=== PATIENT | female | born 2005 | race Two or more races ===

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

== ENCOUNTER 2023-12-08 23:17 | Emergency (ER) | payer OTHER, SELFPAY ==
[2023-12-08 23:29] VITALS: BP 110/67; PULSE 63; RESP 16; TEMP 36.3; O2SAT 97; BMI 18.8
[2023-12-08 23:51] VITALS: BP 105/66; PULSE 67; RESP 16; TEMP 36.8; O2SAT 97
[2023-12-09 00:01] LABS: Appearance Urine Cloudy; Color Urine Yellow; Glucose Urine UA Negative (Negative); Leukocyte Esterase Urine Moderate (2+) (Negative); Nitrite Urine Negative (Negative); PH 6.5 (5.0-9.0); UMIC TRIGGER UACC YES; Urine Blood Negative (Negative); Urine Ketones Negative (Negative); Urine Protein Trace mg/dL (Neg-Trace)
[2023-12-09 00:06] LABS: Bacteria Urine Trace (None Seen); Hyaline Casts Urine 0-2 /LPF (0-2); RBC Urine 0-2 /HPF (0-2); Squamous Epithelial Cell Urine 0-2 /HPF (0-2); UACC Culture Trigger YES; WBC Urine >50 /HPF (0-5)
[2023-12-09] MEDS: Phenazopyridine HCL 100 MG TABLET PO (00:29)
--- NOTE | 2023-12-09 00:29 | ED.FEMALEGU ---
HPI - Female Genitourinary General Chief complaint: Urogenital-Female Stated complaint: UTI Time Seen by Provider: 12/08/23 23:49 Source: patient Mode of arrival: ambulatory Limitations: no limitations History of Present Illness HPI Narrative: Patient's history of frequent UTI complaining of urgency and frequency for last 2 days tried azo [id number] without much relief no fever no nausea no vomiting no flank no vaginal discharge Related Data Previous Rx's Medication Instructions Recorded cefuroxime axetil 250 mg tablet 250 mg PO BID 7 days #14 tabs 12/09/23 phenazopyridine 100 mg tablet 100 mg PO TID #5 tabs 12/09/23 (Pyridium) Allergies Allergy/AdvReac Type Severity Reaction Status Date / Time No Known Allergies Allergy Verified 12/08/23 23:29 Review of Systems Review of Systems: Yes all other systems are reviewed and are negative [facility] Social History Social History Advance Directives: No Advance Directives Information Provided: No Physical Exam Vital Signs: Vital Signs: Last Vital Signs Temp 98.2 F 12/08/23 23:51 Pulse 67 12/08/23 23:51 Resp 16 12/08/23 23:51 BP 105/66 12/08/23 23:51 Pulse Ox 97 12/08/23 23:51 O2 Del Method Room Air 12/08/23 23:51 BMI result Body Mass Index 18.8 Appearance: Alert. Oriented X3. No acute distress. ENT: Pharynx normal. Oral Mucosa moist Neck: Normal inspection. Neck supple. CVS: Normal heart rate and rhythm. Pulses normal. Respiratory: No respiratory distress. Equal air entry bilateral, Abdomen: Soft and nontender. Bowel sounds are present, no mass palpable, no CVA tenderness Medical Decision Making Differential Diagnosis Patient with uncomplicated UTI discharge patient home on Ceftin Lab Data MDM Lab Attestation statement: I reviewed the patient's lab results. Labs: Lab Results 12/08/23 Range/Units 23:55 Urine Color Yellow Urine Appearance Cloudy Urine pH 6.5 (5.0-9.0) Ur Specific [place] 1.020 (1.005-1.025) Urine Protein Trace (Neg-Trace) mg/dL Urine Glucose (UA) Negative (Negative) mg/dL Urine Ketones Negative (Negative) mg/dL Urine Blood Negative (Negative) Urine Nitrite Negative (Negative) Ur Leukocyte Esterase Moderate (2+) H (Negative) Urine RBC 0-2 (0-2) /HPF Urine WBC >50 H (0-5) /HPF Ur Squamous Epith Cells 0-2 (0-2) /HPF Urine Bacteria Trace (None Seen) Hyaline Casts 0-2 (0-2) /LPF Discharge Plan Discharge Clinical Impression: Urinary tract infection Patient Disposition: Home, Self-Care Instructions: Urinary Tract Infection in Women (ED) Additional Instructions: Drink plenty of fluid Take antibiotic as prescribed Prescriptions: New cefuroxime axetil 250 mg tablet 250 mg PO BID 7 Days Qty: 14 0RF phenazopyridine [Pyridium] 100 mg tablet 100 mg PO TID Qty: 5 0RF Interventions: ED Discharge Assessment Last Done: 12/09/23 00:32
[2023-12-09] MEDS: cefuroxime axetiL 250 MG TABLET PO (00:30)
== END 2023-12-09 00:33 | disposition home or self-care (01) ==
PROVIDERS: Emergency Provider Internal Medicine; PCP Internal Medicine
DX: N39.0 Urinary tract infection, site not specified (principal); R35.0 Frequency of micturition; R39.15 Urgency of urination; Z79.899 Other long term (current) drug therapy
CPT/HCPCS: 81001; 81003; 87086; 87088; 87186; 99283

== ENCOUNTER 2024-03-04 00:41 | Emergency (ER) | payer OTHER, SELFPAY ==
[2024-03-04 00:47] VITALS: BP 109/65; PULSE 96; RESP 18; TEMP 36.6; O2SAT 98; BMI 18.7
--- NOTE | 2024-03-04 01:11 | ED_ITS ---
HPI - Female Genitourinary General Chief complaint: Urogenital-Female Stated complaint: UTI Time Seen by Provider: 03/04/24 01:11 History of Present Illness HPI Narrative: The patient is a 18-year-old female who comes to the emergency room for evaluation of symptoms possibly indicative of a UTI. The patient says that she has had symptoms over the last 2-3 days that she thinks her typical of UTIs for her. She has noticed that her urine is darker and cloudy than usual. She also has a sense of frequency and urgency. She does not have any dysuria. The patient suspects that she may have a UTI because of an episode of intercourse she had just before her symptoms began. The patient says that she has only one kidney, a right kidney. She says this is congenital. Her primary care doctor is Dr. Fonseca the radiation control technician. The patient has no flank pain, no fever, no vomiting. Related Data Previous Rx's ?Medication ?Instructions ?Recorded cefuroxime axetil 250 mg tablet 250 mg PO BID 7 days #14 tabs 12/09/23 phenazopyridine 100 mg tablet 100 mg PO TID #5 tabs 12/09/23 (Pyridium) cefuroxime axetil 250 mg tablet 250 mg PO Q12H #10 tabs 03/04/24 Allergies Allergy/AdvReac Type Severity Reaction Status Date / Time ibuprofen AdvReac Unknown Verified 03/04/24 00:51 Review of Systems Review of Systems: Yes all other systems are reviewed and are negative PMFSH Social History Social History Advance Directives: No Advance Directives Information Provided: Yes Do you have a plan to hurt others: No Plan Physical Exam Vital Signs: Vital Signs: Last Vital Signs Temp 97.9 F 03/04/24 00:47 Pulse 96 03/04/24 00:47 Resp 18 03/04/24 00:47 BP 109/65 03/04/24 00:47 Pulse Ox 98 03/04/24 00:47 O2 Del Method Room Air 03/04/24 00:47 BMI result Body Mass Index 18.7 Const: Other: The patient is awake, alert, pleasant, cooperative. She does not appear acutely ill or in distress. HEENT: Other: Face is symmetrical. Mucous membranes moist. Eyes: Other: Pupils are round equal, conjunctivae are clear, extraocular movements are intact. Resp: Effort & Inspection: normal respiratory effort Auscultation: clear to auscultation bilaterally Cardio: Rate: regular rate Rhythm: regular rhythm Heart sounds: S1 normal heart sound present and S2 normal heart sound present GI: Other: Abdomen is soft and nontender Back/Spine/Pelvis: Other: No CVA percussion tenderness Skin: Other: Skin is dry and unremarkable Neuro: Other: The patient is awake, alert, pleasant, nontoxic. Cranial nerves are grossly intact. She moves her extremities normally. Extrem: Other: No peripheral edema Medical Decision Making Medical Decision Making MDM Narrative: The patient is a 18-year-old female with a history of a single right kidney, a congenital condition. She presents with symptoms of UTI. Her urinalysis is consistent with a UTI. There is no finding of pyelonephritis or other systemic illness. Her last urine culture was 2 months ago. She grew an E coli species resistant to ampicillin and levofloxacin. She was treated with cefuroxime for her previous UTI. She will be again prescribed a course of cefuroxime. Lab Data Labs: Lab Results 03/04/24 Range/Units 01:10 Urine Color Yellow Urine Appearance Turbid Urine pH 6.5 (5.0-9.0) Ur Specific [place] 1.025 (1.005-1.025) Urine Protein 30 (1+) H (Neg-Trace) mg/dL Urine Glucose (UA) Negative (Negative) mg/dL Urine Ketones Trace (Negative) mg/dL Urine Blood Trace H (Negative) Urine Nitrite Positive H (Negative) Ur Leukocyte Esterase Large (3+) H (Negative) Urine RBC 0-2 (0-2) /HPF Urine WBC >50 H (0-5) /HPF Ur Squamous Epith Cells 6-10 (0-2) /HPF Urine Bacteria 4+ (None Seen) Hyaline Casts 0-2 (0-2) /LPF Urine Test NEGATIVE (NEGATIVE) Discharge Plan Discharge Clinical Impression: Urinary tract infection Patient Disposition: Home, Self-Care Instructions: Urinary Tract Infection in Women (ED) Additional Instructions: You have been started on a course of antibiotics for a urinary tract infection. Please take this medicine 2 times a day, approximately every 12 hours. Please take the full course of the medicine. Drink lot of fluids. Please contact your regular doctor if you have any questions. Return to the emergency room if you feel significantly worse, especially if you develop flank pain or fevers or vomiting. Prescriptions: New cefuroxime axetil 250 mg tablet 250 mg PO Q12H Qty: 10 0RF No Action cefuroxime axetil 250 mg tablet 250 mg PO BID 7 Days Qty: 14 0RF phenazopyridine [Pyridium] 100 mg tablet 100 mg PO TID Qty: 5 0RF Referrals: Huey Fonseca DO [Physician] - (UTI) Print Language: Icelandic
[2024-03-04 01:17] LABS: Appearance Urine Turbid; Color Urine Yellow; Glucose Urine UA Negative (Negative); Leukocyte Esterase Urine Large (3+) (Negative); Nitrite Urine Positive (Negative); PH 6.5 (5.0-9.0); Specific Gravity - Urine 1.025 (1.005-1.025); UMIC TRIGGER UACC YES; Urine Blood Trace (Negative); Urine Ketones Trace mg/dL (Negative); Urine Protein 30 (1+) mg/dL (Neg-Trace)
[2024-03-04 01:18] LABS: UPreg QC Valid YES; Urine Pregnancy NEGATIVE (NEGATIVE)
[2024-03-04 01:20] LABS: Bacteria Urine 4+ (None Seen); Hyaline Casts Urine 0-2 /LPF (0-2); RBC Urine 0-2 /HPF (0-2); UACC Culture Trigger YES; WBC Urine >50 /HPF (0-5)
[2024-03-04] MEDS: cefuroxime axetiL 250 MG TABLET PO (01:36)
[2024-03-04 02:21] VITALS: BP 111/66; PULSE 92; RESP 16; TEMP 36.7; O2SAT 98
[2024-03-04 02:22] VITALS: BP 111/66; PULSE 92; RESP 16; TEMP 36.7; O2SAT 98
== END 2024-03-04 02:23 | disposition home or self-care (01) ==
PROVIDERS: Emergency Provider Emergency Medicine; PCP Internal Medicine
DX: N39.0 Urinary tract infection, site not specified (principal)
CPT/HCPCS: 81001; 81025; 87086; 87088; 87186; 99283; 99284

== ENCOUNTER 2024-03-25 14:21 | Emergency (ER) | payer OTHER, SELFPAY ==
[2024-03-25 14:59] VITALS: BP 116/53; PULSE 69; RESP 18; TEMP 36.4; O2SAT 98; BMI 18.5
--- NOTE | 2024-03-25 15:03 | ED.GENADULT ---
HPI - General Adult General Chief complaint: Urogenital-Female Stated complaint: lower abd pain wants and std test Time Seen by Provider: 03/25/24 16:44 Source: patient, RN notes reviewed and old records reviewed Mode of arrival: ambulatory Limitations: no limitations History of Present Illness ED Provider: DUGLAS MORAN PA-C HPI narrative: 18-year-old female with pmhx significant for single right kidney (congenital condition) presents to the ED for evaluation of dysuria, cloudy/dark urine, and increasing lower abdominal pain x2 weeks. Admits to associated nausea secondary to pain. No vomiting. Reports history of recurrent UTIs. Last UTI was approximately 1 month ago for which she was treated with Ceftin. Admits to recent unprotected sex. Reports concern for possible sexually transmitted infection along with . LMP 1 mo ago. 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 Denies fever, chills, vomiting, flank pain, vaginal discharge, vaginal lesions, rashes. Related Data Previous Rx's ?Medication ?Instructions ?Recorded cefuroxime axetil 250 mg tablet 250 mg PO BID 7 days #14 tabs 12/09/23 phenazopyridine 100 mg tablet 100 mg PO TID #5 tabs 12/09/23 (Pyridium) cefuroxime axetil 250 mg tablet 250 mg PO Q12H #10 tabs 03/04/24 cefuroxime axetil 250 mg tablet 250 mg PO BID 7 days #14 tabs 03/25/24 Allergies Allergy/AdvReac Type Severity Reaction Status Date / Time ibuprofen AdvReac Unknown Verified 03/25/24 15:03 Review of Systems Review of Systems: Constitutional: No fever, chills, fatigue, night sweats, weight changes ENT/Mouth: No ear pain, hearing loss, nasal congestion, sinus pain, rhinorrhea, sore throat Eyes: No eye pain, swelling, redness, vision changes, discharge Cardio: No chest pain, palpitations, STORY, orthopnea, peripheral edema Pulm: No SOB, cough, sputum, wheezing, dyspnea, hemoptysis GI: No vomiting, hematemesis, diarrhea, constipation, hematochezia, melena, +abdominal pain, +nausea : No irregular bleeding, dysuria, frequency, urgency, hesitancy, hematuria, flank pain, urinary flow changes, urinary incontinence or retention MSK: No back pain, neck pain, joint pain, myalgias Skin: No lesions, rashes Neuro: No weakness, numbness, paresthesias, LOC, dizziness, headache Psych: No anxiety/panic, depression, SI/HI, AH/VH All other systems reviewed and are negative. [facility] Past Medical History Attestation statement: The following information was validated with the patient. Source: old records reviewed and nursing notes reviewed Social History Social History Substance Use Type: Marijuana Advance Directives: No Advance Directives Information Provided: No Do you have a plan to hurt others: No Plan Physical Exam ED Vital Signs: Vital Signs - 24 hr 03/25/24 14:59 03/25/24 16:29 03/25/24 17:50 Temperature 97.6 F 97.7 F 97.7 F Pulse Rate 69 70 70 Respiratory Rate 18 16 16 Blood Pressure 116/53 L 120/61 120/61 Pulse Oximetry 98 98 98 Oxygen Delivery Method Room Air Room Air Room Air BMI result Body Mass Index 18.5 Vital signs stable, afebrile Const General: cooperative, healthy appearing, comfortable and no acute distress Orientation/consciousness: patient oriented x3 Limitations: no limitations HENMT Head: Yes normal to inspection, Yes No palpable skull fracture present, Yes normocephalic and Yes atraumatic Eyes General: appearance normal, both eyes and all related structures Pupils: Equal, round and reactive pupils present Neck Neck: Yes normal visual inspection, Yes full ROM and Yes no lymphadenopathy Resp Effort & Inspection: normal respiratory effort and able to speak in complete sentences Auscultation: clear to auscultation bilaterally Cardio Rate: regular rate Rhythm: regular rhythm GI Other: Abdomen soft, nondistended, nontender palpation, rebound tenderness or guarding. Normoactive bowel sounds x4. General: Yes no CVA tenderness Back/Spine/Pelvis Other: No midline spinous tenderness or step off deformity. No paraspinal muscle tenderness. Back: no CVA tenderness Skin General skin exam: no rashes or lesions noted Neuro General: patient oriented x3 and gait normal Cranial nerves: Yes Equal, round and reactive pupils present Course Course Course Narrative: RME: 18-year-old female presents to ED for cloudy urine and concerns for STI versus UTI. Patient states suprapubic pain comfort. Negative for abdominal tenderness. UA CTNG ordered Reevaluation(s) Reevaluation #1: 1655-- UA with small amount of blood, positive nitrites, large leukocyte esterase - consistent with urinary tract infection. Urine negative. CT NG still pending. I did discuss these results with patient. She tells me that she is having increased lower abdominal pain and now poor p.o. intake secondary to pain. She does have a history of UTI requiring treatment with IV antibiotics. She currently only has one kidney. Will obtain basic lab work to r/o ascending infection as symptoms have been present for 2 weeks. 1740-- CBC without leukocytosis or left shift. No anemia. H&H stable. Chemistry without acute electrolyte abnormality requiring intervention. Normal renal and liver function. I do not have concern for pyelonephritis. I did review previous urine culture results/sensitivity. both previous urine cultures grew over [id number] E coli sensitive to ceftriaxone, levofloxacin and nitro. Ceftin sent to pharmacy for treatment. CT/NG results still pending. I did discuss this with patient and she would like to hold off on treatment at this time. I advised her that we will call her with any positive results and she will be treated accordingly at that time. She verbalizes understanding. Patient has remained stable throughout ED visit today. She is currently tolerating a hot dog in ED and is well appearing. Discussed worrisome signs and symptoms and when to return to the ED. All questions answered at this time. Patient is agreeable with disposition and stable for discharge. Medical Decision Making Medical Decision Making MDM Narrative: 18-year-old female with pmhx significant for single right kidney (congenital condition) presents to the ED for evaluation of dysuria, cloudy/dark urine, and increasing lower abdominal pain x2 weeks. Vital signs stable. Afebrile. She is nontoxic-appearing and in no acute distress. Lying comfortably on the exam bed, conversing with friends in room. On exam, abdomen is soft, nondistended, nontender to palpation, no rebound tenderness or guarding. No CVAT bilaterally. Skin warm, dry, intact. Differential diagnosis includes urinary tract infection, pyelonephritis, sexually transmitted infection, intrauterine . Unlikely PID, ovarian torsion, ectopic . Plan for basic labs, urinalysis, urine , CT/NG testing, and re-evaluation. Differential Diagnosis Differential Diagnoses: The differential diagnosis associated with the presentation includes as above. Admission/Observation Not indicated. Lab Data MDM Lab Attestation statement: I reviewed the patient's lab results. as above. 03/25/24 17:03 03/25/24 17:03 Labs: Lab Results 03/25/24 03/25/24 Range/Units 15:57 17:03 WBC 10.6 (4.8-10.8) X10*3/uL RBC 4.52 (4.20-5.50) X10*6/uL Hgb 13.7 (12.0-16.0) g/dl Hct 40.3 (37.0-47.0) % MCV 89.2 (80.0-98.0) fL MCH 30.3 (27.0-33.0) pg MCHC 34.0 (31.0-35.0) g/dl RDW 12.7 (11.0-16.0) % Plt Count 280 (160-400) X10*3/uL MPV 9.5 (9.4-12.3) fL Immature Gran % (Auto) 0.3 (0.0-0.4) % Neut % (Auto) 72.1 (45-73) % Lymph % (Auto) 19.3 L (20-40) % [place] % (Auto) 6.4 (2-11) % Eos % (Auto) 1.3 (0-4) % Baso % (Auto) 0.6 (0-2) % Lymph # (Auto) 2.1 (1.2-4.9) X10*3/uL [place] # (Auto) 0.7 (0.1-1.2) X10*3/uL Eos # (Auto) 0.1 (0.0-0.4) X10*3/uL Baso # (Auto) 0.1 (0.0-0.2) X10*3/uL Abs Immat Gran (auto) 0.03 (0.00-0.03) X10*3/uL Absolute Neuts (auto) 7.7 (2.0-8.3) x10*3/uL Absolute Nucleated RBC 0.000 (0.0-0.012) X10*3/uL Nucleated RBC % (auto) 0.0 (0.0-0.2) /100WBC Sodium 143 (135-145) mmol/L Potassium 3.9 (3.3-5.1) mmol/L Chloride 109 H (96-108) mmol/L Carbon Dioxide 28 (22-29) mmol/L Anion Gap 10 L (12-20) BUN 12 (9-16) mg/dL Creatinine 0.78 (0.5-1.4) mg/dL Estim Creat Clear Calc 80.4 Estimated GFR > 60 Random Glucose 82 (60-115) mg/dL Calcium 9.3 (8.4-10.2) mg/dL Total Bilirubin 0.8 (0.0-1.0) mg/dL AST 17 (5-31) U/L ALT 11 (0-31) U/L Alkaline Phosphatase 73 (39-117) U/L Total Protein 7.4 (6.5-8.0) g/dL Albumin 4.5 (3.5-5.0) g/dL Beta HCG, Quant < 2 mIU/mL Urine Color Yellow Urine Appearance Turbid Urine pH 5.5 (5.0-9.0) Ur Specific [place] 1.020 (1.005-1.025) Urine Protein 30 (1+) H (Neg-Trace) mg/dL Urine Glucose (UA) Negative (Negative) mg/dL Urine Ketones Negative (Negative) mg/dL Urine Blood Small (1+) H (Negative) Urine Nitrite Positive H (Negative) Ur Leukocyte Esterase Large (3+) H (Negative) Urine RBC 0-2 (0-2) /HPF Urine WBC >50 H (0-5) /HPF Ur Squamous Epith Cells 11-20 (0-2) /HPF Urine Bacteria 4+ (None Seen) Hyaline Casts 0-2 (0-2) /LPF Urine Test NEGATIVE (NEGATIVE) Chlam trachomat DNA PCR NOT DETECTED (Not Detect.) N.gonorrhoeae DNA (PCR) NOT DETECTED (Not Detect.) External Record Review External record reviewed: Inpatient record Prescription Management I considered prescription management with: Pain Medication (Tylenol/ibuprofen) and Antibiotic (Ceftin) Social Determinants Patient?s care significantly limited by Social Determinants of Health including: Other Social Determinant of Health Critical Care Time Critical Care Time Critical Care Time: No Discharge Plan Discharge Clinical Impression: Urinary tract infection Patient Disposition: Home, Self-Care Instructions: Urinary Tract Infection in Women (DC) Additional Instructions: Your blood work today is reassuring. You tested negative for pregnany. Your urine has been sent to the lab to evaluate for gonorrhea and chlamydia. You have chosen to wait until results come back positive to be treated for this. You will be called with any positive results. Your urine today was positive for infection. Ceftin is an antibiotic that has been sent to your pharmacy. Take this as prescribed and do not miss any doses. You must complete the entire course of antibiotics. If you do not, there is a risk of the infection coming back or worsening. Follow up with your primary care provider as needed. If you develop a fever or new/ worsening symptoms call 911 or come back to the ER for further evaluation. Prescriptions: New cefuroxime axetil 250 mg tablet 250 mg PO BID 7 Days Qty: 14 0RF No Action cefuroxime axetil 250 mg tablet 250 mg PO BID 7 Days Qty: 14 0RF phenazopyridine [Pyridium] 100 mg tablet 100 mg PO TID Qty: 5 0RF cefuroxime axetil 250 mg tablet 250 mg PO Q12H Qty: 10 0RF Stand Alone Forms: Work/School Release Interventions: ED Discharge Assessment Last Done: 03/25/24 17:50 Discharge Date/Time: 03/25/24 17:50 Print Language: Telugu
[2024-03-25 16:29] VITALS: BP 120/61; PULSE 70; RESP 16; TEMP 36.5; O2SAT 98
[2024-03-25 16:35] LABS: Appearance Urine Turbid; Color Urine Yellow; Glucose Urine UA Negative (Negative); Leukocyte Esterase Urine Large (3+) (Negative); Nitrite Urine Positive (Negative); PH 5.5 (5.0-9.0); UMIC TRIGGER UACC YES; Urine Blood Small (1+) (Negative); Urine Ketones Negative (Negative); Urine Protein 30 (1+) mg/dL (Neg-Trace)
[2024-03-25 16:37] LABS: UPreg QC Valid YES; Urine Pregnancy NEGATIVE (NEGATIVE)
[2024-03-25 17:01] LABS: Bacteria Urine 4+ (None Seen); Hyaline Casts Urine 0-2 /LPF (0-2); RBC Urine 0-2 /HPF (0-2); UACC Culture Trigger YES; WBC Urine >50 /HPF (0-5)
[2024-03-25 17:09] LABS: MANUAL DIFF FLAG NO
[2024-03-25 17:22] LABS: Basophils Absolute Auto 0.1 X10*3/uL (0.0-0.2); Basophils Percent Auto 0.6 % (0-2); Eosinophils Absolute Auto 0.1 X10*3/uL (0.0-0.4); Eosinophils Percent Auto 1.3 % (0-4); Hematocrit 40.3 % (37.0-47.0); Hemoglobin 13.7 g/dl (12.0-16.0); Imm Gran Abs Auto 0.03 X10*3/uL (0.00-0.03); Imm Gran Pct Auto 0.3 % (0.0-0.4); Lymphocytes Absolute Auto 2.1 X10*3/uL (1.2-4.9); Lymphocytes Percent Auto 19.3 % (20-40); Mean Corpuscular Hemoglobin 30.3 pg (27.0-33.0); Mean Corpuscular Volume 89.2 fL (80.0-98.0); Mean Platelet Volume 9.5 fL (9.4-12.3); Monocytes Absolute Auto 0.7 X10*3/uL (0.1-1.2); Monocytes Percent Auto 6.4 % (2-11); Neutrophils Absolute Auto 7.7 x10*3/uL (2.0-8.3); Neutrophils Percent Auto 72.1 % (45-73); Platelet Count 280 X10*3/uL (160-400); Red Blood Count 4.52 X10*6/uL (4.20-5.50); Red Cell Distribution Width 12.7 % (11.0-16.0); White Blood Count 10.6 X10*3/uL (4.8-10.8)
[2024-03-25 17:33] LABS: Alanine Aminotransferase 11 U/L (0-31); Albumin Level 4.5 g/dL (3.5-5.0); Alkaline Phosphatase 73 U/L (39-117); Anion Gap 10 (12-20); Aspartate Amino Transferase 17 U/L (5-31); Bilirubin Total 0.8 mg/dL (0.0-1.0); Blood Urea Nitrogen 12 mg/dL (9-16); Calcium 9.3 mg/dL (8.4-10.2); Carbon Dioxide 28 mmol/L (22-29); Chloride 109 mmol/L (96-108); Creatinine Clr Calc Pharmacy 80.4; Estimated Glomerular Filt Rate > 60; Glucose Random 82 mg/dL (60-115); HCG Quantitative < 2 mIU/mL; Potassium 3.9 mmol/L (3.3-5.1); Sodium 143 mmol/L (135-145); Total Protein 7.4 g/dL (6.5-8.0)
[2024-03-25 17:50] VITALS: BP 120/61; PULSE 70; RESP 16; TEMP 36.5; O2SAT 98
[2024-03-25 18:11] LABS: CT PCR NOT DETECTED (Not Detect.); NG PCR NOT DETECTED (Not Detect.)
== END 2024-03-25 17:50 | disposition home or self-care (01) ==
PROVIDERS: Physician Assistant; Physician Assistant Medical; Emergency Provider Emergency Medicine Emergency Medical Services; PCP Internal Medicine
DX: N39.0 Urinary tract infection, site not specified (principal); R30.0 Dysuria; R10.30 Lower abdominal pain, unspecified; F12.90 Cannabis use, unspecified, uncomplicated; Z20.2 Contact with and (suspected) exposure to infections with a predominantly sexual mode of transmission
CPT/HCPCS: 0353U; 36415; 80053; 81001; 81025; 84702; 85025; 87086; 87088; 87186; 99283

== ENCOUNTER 2024-04-11 00:28 | Emergency (ER) | payer MEDICAID, SELFPAY ==
[2024-04-11 00:33] VITALS: BP 122/80; PULSE 59; RESP 16; TEMP 36.9; O2SAT 100; BMI 18.7
[2024-04-11 01:18] LABS: Appearance Urine Cloudy; Glucose Urine UA Negative (Negative); Leukocyte Esterase Urine Small (1+) (Negative); Nitrite Urine Positive (Negative); PH 6.5 (5.0-9.0); Specific Gravity - Urine 1.025 (1.005-1.025); UMIC TRIGGER UACC YES; Urine Blood Large (3+) (Negative); Urine Ketones Trace mg/dL (Negative); Urine Protein 100 (2+) mg/dL (Neg-Trace)
[2024-04-11 01:19] LABS: Color Urine RED
[2024-04-11 01:20] LABS: UPreg QC Valid YES; Urine Pregnancy NEGATIVE (NEGATIVE)
[2024-04-11 01:22] LABS: Bacteria Urine 4+ (None Seen); Hyaline Casts Urine 0-2 /LPF (0-2); RBC Urine >20 /HPF (0-2); UACC Culture Trigger YES; WBC Urine >50 /HPF (0-5)
[2024-04-11 01:28] LABS: Basophils Absolute Auto 0.1 X10*3/uL (0.0-0.2); Basophils Percent Auto 0.6 % (0-2); Eosinophils Absolute Auto 0.2 X10*3/uL (0.0-0.4); Eosinophils Percent Auto 1.6 % (0-4); Hematocrit 38.3 % (37.0-47.0); Hemoglobin 13.1 g/dl (12.0-16.0); Imm Gran Abs Auto 0.04 X10*3/uL (0.00-0.03); Imm Gran Pct Auto 0.3 % (0.0-0.4); Lymphocytes Absolute Auto 2.6 X10*3/uL (1.2-4.9); Lymphocytes Percent Auto 18.1 % (20-40); MANUAL DIFF FLAG NO; Mean Corpuscular HGB Conc 34.2 g/dl (31.0-35.0); Mean Corpuscular Hemoglobin 30.6 pg (27.0-33.0); Mean Corpuscular Volume 89.5 fL (80.0-98.0); Mean Platelet Volume 9.1 fL (9.4-12.3); Monocytes Absolute Auto 0.9 X10*3/uL (0.1-1.2); Monocytes Percent Auto 6.3 % (2-11); Neutrophils Absolute Auto 10.5 x10*3/uL (2.0-8.3); Neutrophils Percent Auto 73.1 % (45-73); Platelet Count 266 X10*3/uL (160-400); Red Blood Count 4.28 X10*6/uL (4.20-5.50); White Blood Count 14.3 X10*3/uL (4.8-10.8)
[2024-04-11 01:40] LABS: Anion Gap 11 (12-20); Blood Urea Nitrogen 15 mg/dL (9-16); Calcium 9.1 mg/dL (8.4-10.2); Carbon Dioxide 24 mmol/L (22-29); Chloride 110 mmol/L (96-108); Creatinine Clr Calc Pharmacy 77.7; Estimated Glomerular Filt Rate > 60; Glucose Random 94 mg/dL (60-115); Potassium 3.7 mmol/L (3.3-5.1); Sodium 141 mmol/L (135-145)
--- NOTE | 2024-04-11 01:52 | ED_ITS ---
HPI - Female Genitourinary General Chief complaint: Urogenital-Female Stated complaint: possible kidney infection after medication Time Seen by Provider: 04/11/24 01:51 Source: patient Mode of arrival: ambulatory Limitations: no limitations History of Present Illness ED Provider: yancy REILLY Narrative: Patient with single r kidney by been having frequent UTI since 12/29 patient was seen here on 03/25 UA grew E coli and Klebsiella sensitive to cefuroxime which she took for 7 days started having same symptoms with dysuria and frequency after she finished antibiotics complaining of nausea no fever but has chills no flank pain but has low back pain Related Data Previous Rx's ?Medication ?Instructions ?Recorded cefuroxime axetil 250 mg tablet 250 mg PO BID 7 days #14 tabs 12/09/23 phenazopyridine 100 mg tablet 100 mg PO TID #5 tabs 12/09/23 (Pyridium) cefuroxime axetil 250 mg tablet 250 mg PO Q12H #10 tabs 03/04/24 cefuroxime axetil 250 mg tablet 250 mg PO BID 7 days #14 tabs 03/25/24 nitrofurantoin 100 mg PO BID #20 caps 04/11/24 monohydrate/macrocrystals 100 mg capsule (Macrobid) Allergies Allergy/AdvReac Type Severity Reaction Status Date / Time ibuprofen AdvReac Unknown Verified 04/11/24 00:41 Review of Systems 2 Review of Systems: Yes all other systems are reviewed and are negative [facility] Social History Social History Substance Use Type: Marijuana Advance Directives: No Advance Directives Information Provided: Yes Do you have a plan to hurt others: No Plan Physical Exam 2 Vital Signs: Vital Signs: Last Vital Signs Temp 98.5 F 04/11/24 03:38 Pulse 59 04/11/24 03:38 Resp 16 04/11/24 03:38 BP 122/80 04/11/24 03:38 Pulse Ox 100 04/11/24 03:38 O2 Del Method Room Air 04/11/24 03:38 BMI result Body Mass Index 18.7 Appearance: Alert. Oriented X3. No acute distress. ENT: Pharynx normal. Oral Mucosa moist Neck: Normal inspection. Neck supple. CVS: Normal heart rate and rhythm. Pulses normal. Respiratory: No respiratory distress. Equal air entry bilateral, Abdomen: Soft and nontender. Bowel sounds are present, no mass palpable, no CVA tenderness Skin: Skin warm and dry. Normal skin color. Normal skin turgor. Extremities: No lower extremity edema. No calf tenderness Neuro: Oriented X 3. Medications Administered Discontinued Medications Generic Name Dose Route Start Last Admin Trade Name Freq PRN Reason Stop Dose Admin Sodium Chloride 1,000 mls @ 999 mls/hr 04/11/24 02:01 04/11/24 03:21 Ns IV 04/11/24 03:01 Infused .Q1H1M ONE Infusion Ceftriaxone Sodium 1 gm/ 50 mls @ 100 mls/hr 04/11/24 02:01 04/11/24 03:21 Sodium Chloride IV 04/11/24 02:30 Infused ONCE ONE Infusion Ondansetron HCl 4 mg 04/11/24 02:01 04/11/24 02:16 Ondansetron Hcl 4 Mg/2 Ml Vial IVPUSH 04/11/24 02:02 4 mg ONCE ONE Administration Medical Decision Making Medical Decision Making [facility] Narrative: Patient is single kidney with recurrent UTI previous urine culture grew E coli and Klebsiella sensitive to ceftriaxone and Macrobid will give a dose of IV ceftriaxone and plan to discharge on Macrobid Differential Diagnosis Differential Diagnoses: The differential diagnosis associated with the presentation includes Admission/Observation Consideration of admission/observation: Escalation of care including admission/observation considered Lab Data [facility] Lab Attestation statement: I reviewed the patient's lab results. 04/11/24 01:23 04/11/24 01:23 Labs: Lab Results 04/11/24 04/11/24 Range/Units 01:09 01:23 WBC 14.3 H (4.8-10.8) X10*3/uL RBC 4.28 (4.20-5.50) X10*6/uL Hgb 13.1 (12.0-16.0) g/dl Hct 38.3 (37.0-47.0) % MCV 89.5 (80.0-98.0) fL MCH 30.6 (27.0-33.0) pg MCHC 34.2 (31.0-35.0) g/dl RDW 13.0 (11.0-16.0) % Plt Count 266 (160-400) X10*3/uL MPV 9.1 L (9.4-12.3) fL Immature Gran % (Auto) 0.3 (0.0-0.4) % Neut % (Auto) 73.1 H (45-73) % Lymph % (Auto) 18.1 L (20-40) % [place] % (Auto) 6.3 (2-11) % Eos % (Auto) 1.6 (0-4) % Baso % (Auto) 0.6 (0-2) % Lymph # (Auto) 2.6 (1.2-4.9) X10*3/uL [place] # (Auto) 0.9 (0.1-1.2) X10*3/uL Eos # (Auto) 0.2 (0.0-0.4) X10*3/uL Baso # (Auto) 0.1 (0.0-0.2) X10*3/uL Abs Immat Gran (auto) 0.04 H (0.00-0.03) X10*3/uL Absolute Neuts (auto) 10.5 H (2.0-8.3) x10*3/uL Absolute Nucleated RBC 0.000 (0.0-0.012) X10*3/uL Nucleated RBC % (auto) 0.0 (0.0-0.2) /100WBC Sodium 141 (135-145) mmol/L Potassium 3.7 (3.3-5.1) mmol/L Chloride 110 H (96-108) mmol/L Carbon Dioxide 24 (22-29) mmol/L Anion Gap 11 L (12-20) BUN 15 (9-16) mg/dL Creatinine 0.82 (0.5-1.4) mg/dL Estim Creat Clear Calc 77.7 Estimated GFR > 60 Random Glucose 94 (60-115) mg/dL Calcium 9.1 (8.4-10.2) mg/dL Urine Color RED Urine Appearance Cloudy Urine pH 6.5 (5.0-9.0) Ur Specific [place] 1.025 (1.005-1.025) Urine Protein 100 (2+) H (Neg-Trace) mg/dL Urine Glucose (UA) Negative (Negative) mg/dL Urine Ketones Trace (Negative) mg/dL Urine Blood Large (3+) H (Negative) Urine Nitrite Positive H (Negative) Ur Leukocyte Esterase Small (1+) H (Negative) Urine RBC >20 H (0-2) /HPF Urine WBC >50 H (0-5) /HPF Ur Squamous Epith Cells 3-5 (0-2) /HPF Urine Bacteria 4+ (None Seen) Hyaline Casts 0-2 (0-2) /LPF Urine Test NEGATIVE (NEGATIVE) Discharge Plan Discharge Clinical Impression: Urinary tract infection Patient Disposition: Home, Self-Care Instructions: Urinary Tract Infection in Women (ED) Additional Instructions: Drink plenty of fluids Take antibiotic as prescribed Follow with your [employer] pe[employer] Report to the ER if worsening of symptoms/fever/vomiting Prescriptions: New nitrofurantoin monohyd/m-cryst [Macrobid] 100 mg capsule 100 mg PO BID Qty: 20 0RF Rx Instructions: must administer with a meal/food No Action cefuroxime axetil 250 mg tablet 250 mg PO BID 7 Days Qty: 14 0RF phenazopyridine [Pyridium] 100 mg tablet 100 mg PO TID Qty: 5 0RF cefuroxime axetil 250 mg tablet 250 mg PO Q12H Qty: 10 0RF cefuroxime axetil 250 mg tablet 250 mg PO BID 7 Days Qty: 14 0RF Interventions: ED Discharge Assessment Last Done: 04/11/24 03:38 Discharge Date/Time: 04/11/24 03:39 Print Language: Maltese
[2024-04-11] MEDS: 0.9 % Sodium Chloride 1,000 ML 999 ML IV (02:12)
[2024-04-11] MEDS: cefTRIAXone sodium 1 GM in 0.9 % Sodium Chloride 50 ML IV (02:16)
[2024-04-11] MEDS: ondansetron HCL 4 MG/2 ML VIAL IVPUSH (02:16)
[2024-04-11 03:38] VITALS: BP 122/80; PULSE 59; RESP 16; TEMP 36.9; O2SAT 100
== END 2024-04-11 03:39 | disposition home or self-care (01) ==
PROVIDERS: Emergency Provider Internal Medicine; PCP Internal Medicine
DX: N39.0 Urinary tract infection, site not specified (principal); B96.1 Klebsiella pneumoniae [K. pneumoniae] as the cause of diseases classified elsewhere; Z87.440 Personal history of urinary (tract) infections
CPT/HCPCS: 36415; 80048; 81001; 81025; 85025; 87086; 87088; 87186; 96365; 96375; 99284; J0696; J2405

== ENCOUNTER 2024-04-29 23:13 | Emergency (ER) | payer OTHER, SELFPAY ==
--- NOTE | ~2024-04-29 | CT_ITS ---
EXAMINATION: CT ABDOMEN AND PELVIS WITHOUT CONTRAST CLINICAL INFORMATION: Reason for Exam Single right kidney with stent placement, uti COMPARISON: None available. TECHNIQUE: Multidetector volumetric imaging was performed from the superior aspect of the liver through the pubic symphysis. Sagittal and coronal reformatted images were obtained on the technologist's workstation. This CT examination was performed using dose optimization techniques as appropriate, variously including the following: *Automated exposure control *Adjustment of mA and/or kV according to patient size (this includes techniques or standardized protocols for targeted exams where dose is matched to indication/reason for exam; i.e. extremities or head) *Use of iterative reconstruction technique DLP: 274 mGy-cm FINDINGS: LUNG BASES: The visualized lung bases are unremarkable. LIVER, GALLBLADDER, AND BILIARY TREE: The liver is normal in size, shape, and attenuation. No focal hepatic lesion or biliary ductal dilatation is identified on this noncontrast exam. Gallbladder is contracted and not adequately evaluated. PANCREAS: Grossly unremarkable. SPLEEN: Unremarkable. ADRENAL GLANDS: Unremarkable. KIDNEYS AND URETERS: Left kidney is not visualized. Right renal pelvis appears mildly prominent. Though the course of the right ureter is difficult to follow, there is a somewhat linear configuration of calcification in the right pelvis in the expected region of the distal right ureter, extending for approximately 20 mm in length. Appearance raises concern for distal right ureteral calculi. No significant right perinephric stranding. BLADDER: Unremarkable. GASTROINTESTINAL TRACT: No evidence of bowel obstruction or significant wall thickening. Appendix appears nondilated. No free fluid or free air is seen. ABDOMINAL WALL: No significant hernia is appreciated. LYMPH NODES: No lymphadenopathy is seen, though assessment is limited in the absence of intravenous contrast. VASCULAR: Unremarkable. PELVIC VISCERA: Suboptimally assessed without intravenous contrast. OSSEOUS STRUCTURES: Unremarkable. CT/CT abdomen pelvis wo IV con IMPRESSION: Though the course of the right ureter is difficult to follow, there is a somewhat linear configuration of calcifications in the right pelvis in the expected region of the distal right ureter, extending for approximately 20 mm in length. Appearance raises concern for distal right ureteral calculi. Right renal pelvis is noted to be mildly prominent, suggesting mild hydronephrosis in this setting. CT urogram may allow for better evaluation.
[2024-04-29 23:22] VITALS: BP 122/71; PULSE 60; RESP 18; TEMP 36.4; O2SAT 100; BMI 18.5
[2024-04-29 23:46] LABS: Appearance Urine Turbid; Color Urine Yellow; Glucose Urine UA Negative (Negative); Leukocyte Esterase Urine Large (3+) (Negative); Nitrite Urine Positive (Negative); Specific Gravity - Urine 1.025 (1.005-1.025); UMIC TRIGGER UACC YES; Urine Blood Trace (Negative); Urine Ketones Trace mg/dL (Negative); Urine Protein 30 (1+) mg/dL (Neg-Trace)
[2024-04-29 23:49] LABS: Bacteria Urine 4+ (None Seen); Hyaline Casts Urine 0-2 /LPF (0-2); RBC Urine 0-2 /HPF (0-2); UACC Culture Trigger YES; WBC Urine >50 /HPF (0-5)
--- NOTE | 2024-04-30 00:31 | ED.FEMALEGU ---
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 details not available was doing fine till 12/29 started having UTI growing E coli and Klebsiella taken multiple courses of antibiotic with partial response treated with cefuroxime and Macrobid last course was on 04/11 comes here for 4 days of cloudy urine and discomfort when she urinates no flank pain no nausea no vomiting no fever no chills patient is followed by urologist at [facility] Related Data Previous Rx's ?Medication ?Instructions ?Recorded cefuroxime axetil 250 mg tablet 250 mg PO BID 7 days #14 tabs 12/09/23 phenazopyridine 100 mg tablet 100 mg PO TID #5 tabs 12/09/23 (Pyridium) cefuroxime axetil 250 mg tablet 250 mg PO Q12H #10 tabs 03/04/24 cefuroxime axetil 250 mg tablet 250 mg PO BID 7 days #14 tabs 03/25/24 nitrofurantoin 100 mg PO BID #20 caps 04/11/24 monohydrate/macrocrystals 100 mg capsule (Macrobid) ciprofloxacin HCl 250 mg tablet 250 mg PO BID #20 tabs 04/30/24 (Cipro) Allergies Allergy/AdvReac Type Severity Reaction Status Date / Time ibuprofen AdvReac Unknown Verified 04/29/24 23:24 Review of Systems Review of Systems: Yes all other systems are reviewed and are negative [facility] Past Medical History Medical History Congenital single kidney Social History Social History Alcohol intake: current Alcohol intake frequency: holidays/special occasions only Smoked in Last 30 Days: No Use of substances other than those prescribed or required for medical reasons: Yes Substance Use Type: Marijuana Substance Use Frequency: Occasionally Last Used Substance: Days (ago) Advance Directives: No Advance Directives Information Provided: No Patient : No Physical Exam Vital Signs: Vital Signs: Last Vital Signs Temp 97.7 F 04/30/24 05:48 Pulse 58 04/30/24 05:48 Resp 14 04/30/24 05:48 BP 106/50 L 04/30/24 05:48 Pulse Ox 98 04/30/24 05:48 O2 Del Method Room Air 04/30/24 05:48 BMI result Body Mass Index 18.5 Appearance: Alert. Oriented X3. No acute distress. Eyes: PERRLA, No Nystagmus ENT: Pharynx normal. Oral Mucosa moist Neck: Normal inspection. Neck supple. CVS: Normal heart rate and rhythm. Pulses normal. Respiratory: No respiratory distress. Equal air entry bilateral, no wheezing/rales/rhonchi Abdomen: Soft and nontender. Bowel sounds are present, no mass palpable, no CVA tenderness Skin: Skin warm and dry. Normal skin color. Normal skin turgor. Extremities: No lower extremity edema. No calf tenderness Neuro: Oriented X 3. Medications Administered Discontinued Medications Generic Name Dose Route Start Last Admin Trade Name Freq PRN Reason Stop Dose Admin Sodium Chloride 1,000 mls @ 999 mls/hr 04/30/24 00:43 04/30/24 03:18 Ns IV 04/30/24 01:43 Infused .Q1H1M ONE Infusion Ceftriaxone Sodium 1 gm/ 50 mls @ 100 mls/hr 04/30/24 00:43 04/30/24 02:17 Sodium Chloride IV 04/30/24 01:12 Infused ONCE ONE Infusion Medical Decision Making Medical Decision Making [facility] Narrative: Patient is started on Cipro advised to follow with her urologist for further evaluation the calcified structure in the right ureteric is the stent likely which was placed when she was infant Differential Diagnosis Differential Diagnoses: The differential diagnosis associated with the presentation includes UTI/pyelonephritis Lab Data [facility] Lab Attestation statement: I reviewed the patient's lab results. 04/30/24 01:03 04/30/24 01:03 Labs: Lab Results 04/29/24 04/30/24 Range/Units 23:39 01:03 WBC 8.1 (4.8-10.8) X10*3/uL RBC 4.72 (4.20-5.50) X10*6/uL Hgb 14.5 (12.0-16.0) g/dl Hct 42.0 (37.0-47.0) % MCV 89.0 (80.0-98.0) fL MCH 30.7 (27.0-33.0) pg MCHC 34.5 (31.0-35.0) g/dl RDW 12.4 (11.0-16.0) % Plt Count 263 (160-400) X10*3/uL MPV 9.2 L (9.4-12.3) fL Immature Gran % (Auto) 0.2 (0.0-0.4) % Neut % (Auto) 51.7 (45-73) % Lymph % (Auto) 36.9 (20-40) % [place] % (Auto) 7.5 (2-11) % Eos % (Auto) 3.1 (0-4) % Baso % (Auto) 0.6 (0-2) % Lymph # (Auto) 3.0 (1.2-4.9) X10*3/uL [place] # (Auto) 0.6 (0.1-1.2) X10*3/uL Eos # (Auto) 0.3 (0.0-0.4) X10*3/uL Baso # (Auto) 0.1 (0.0-0.2) X10*3/uL Abs Immat Gran (auto) 0.02 (0.00-0.03) X10*3/uL Absolute Neuts (auto) 4.2 (2.0-8.3) x10*3/uL Absolute Nucleated RBC 0.000 (0.0-0.012) X10*3/uL Nucleated RBC % (auto) 0.0 (0.0-0.2) /100WBC Sodium 142 (135-145) mmol/L Potassium 3.6 (3.3-5.1) mmol/L Chloride 107 (96-108) mmol/L Carbon Dioxide 25 (22-29) mmol/L Anion Gap 14 (12-20) BUN 17 H (9-16) mg/dL Creatinine 0.83 (0.5-1.4) mg/dL Estim Creat Clear Calc 75.8 Estimated GFR > 60 Random Glucose 84 (60-115) mg/dL Lactic Acid 0.8 (0.5-2.0) mmol/L Calcium 9.4 (8.4-10.2) mg/dL Total Bilirubin 0.4 (0.0-1.0) mg/dL AST 15 (5-31) U/L ALT 11 (0-31) U/L Alkaline Phosphatase 70 (39-117) U/L Total Protein 7.4 (6.5-8.0) g/dL Albumin 4.4 (3.5-5.0) g/dL Urine Color Yellow Urine Appearance Turbid Urine pH 6.0 (5.0-9.0) Ur Specific [place] 1.025 (1.005-1.025) Urine Protein 30 (1+) H (Neg-Trace) mg/dL Urine Glucose (UA) Negative (Negative) mg/dL Urine Ketones Trace (Negative) mg/dL Urine Blood Trace H (Negative) Urine Nitrite Positive H (Negative) Ur Leukocyte Esterase Large (3+) H (Negative) Urine RBC 0-2 (0-2) /HPF Urine WBC >50 H (0-5) /HPF Ur Squamous Epith Cells 6-10 (0-2) /HPF Urine Bacteria 4+ (None Seen) Hyaline Casts 0-2 (0-2) /LPF Urine Test NEGATIVE (NEGATIVE) Independent Interpretation I performed an independent interpretation of an: CT Scan Radiology Impression Discussion of test interpretation with radiology: I have reviewed the radiologist's reading. Radiologist Impression: [place] [id number] CT Scan Report Signed Patient: Erica Villasenor MR#: [id number] : 2005 Acct:[id number] Age/Sex: 18 / F ADM Date: 04/29/24 Loc: .ED Attending Dr: Ordering Physician: Gabriel Deluca MD Date of Service: 04/30/24 Procedure(s): CT abdomen pelvis wo IV con Accession Number(s): [id number] cc: Lupe Vargas MD; Gabriel Deluca MD~ EXAMINATION: CT ABDOMEN AND PELVIS WITHOUT CONTRAST CLINICAL INFORMATION: Reason for Exam Single right kidney with stent placement, uti COMPARISON: None available. TECHNIQUE: Multidetector volumetric imaging was performed from the superior aspect of the liver through the pubic symphysis. Sagittal and coronal reformatted images were obtained on the technologist's workstation. This CT examination was performed using dose optimization techniques as appropriate, variously including the following: *Automated exposure control *Adjustment of mA and/or kV according to patient size (this includes techniques or standardized protocols for targeted exams where dose is matched to indication/reason for exam; i.e. extremities or head) *Use of iterative reconstruction technique DLP: 274 mGy-cm FINDINGS: LUNG BASES: The visualized lung bases are unremarkable. LIVER, GALLBLADDER, AND BILIARY TREE: The liver is normal in size, shape, and attenuation. No focal hepatic lesion or biliary ductal dilatation is identified on this noncontrast exam. Gallbladder is contracted and not adequately evaluated. PANCREAS: Grossly unremarkable. SPLEEN: Unremarkable. ADRENAL GLANDS: Unremarkable. KIDNEYS AND URETERS: Left kidney is not visualized. Right renal pelvis appears mildly prominent. Though the course of the right ureter is difficult to follow, there is a somewhat linear configuration of calcification in the right pelvis in the expected region of the distal right ureter, extending for approximately 20 mm in length. Appearance raises concern for distal right ureteral calculi. No significant right perinephric stranding. BLADDER: Unremarkable. GASTROINTESTINAL TRACT: No evidence of bowel obstruction or significant wall thickening. Appendix appears nondilated. No free fluid or free air is seen. ABDOMINAL WALL: No significant hernia is appreciated. LYMPH NODES: No lymphadenopathy is seen, though assessment is limited in the absence of intravenous contrast. VASCULAR: Unremarkable. PELVIC VISCERA: Suboptimally assessed without intravenous contrast. OSSEOUS STRUCTURES: Unremarkable. CT/CT abdomen pelvis wo IV con IMPRESSION: Though the course of the right ureter is difficult to follow, there is a somewhat linear configuration of calcifications in the right pelvis in the expected region of the distal right ureter, extending for approximately 20 mm in length. Appearance raises concern for distal right ureteral calculi. Right renal pelvis is noted to be mildly prominent, suggesting mild hydronephrosis in this setting. CT urogram may allow for better evaluation. Discharge Plan Discharge Clinical Impression: Urinary tract infection Patient Disposition: Home, Self-Care Instructions: Urinary Tract Infection in Women (ED) Additional Instructions: Drink plenty of fluids Take antibiotic as prescribed Follow with urologist next 2- 3 days for further management Report to the ER if high fever or flank pain or vomiting Prescriptions: New ciprofloxacin HCl [Cipro] 250 mg tablet 250 mg PO BID Qty: 20 0RF No Action cefuroxime axetil 250 mg tablet 250 mg PO BID 7 Days Qty: 14 0RF phenazopyridine [Pyridium] 100 mg tablet 100 mg PO TID Qty: 5 0RF cefuroxime axetil 250 mg tablet 250 mg PO Q12H Qty: 10 0RF cefuroxime axetil 250 mg tablet 250 mg PO BID 7 Days Qty: 14 0RF nitrofurantoin monohyd/m-cryst [Macrobid] 100 mg capsule 100 mg PO BID Qty: 20 0RF Rx Instructions: must administer with a meal/food Interventions: ED Discharge Assessment Last Done: 04/30/24 05:48 Discharge Date/Time: 04/30/24 05:51 Print Language: Gabonese
[2024-04-30 01:02] LABS: UPreg QC Valid YES; Urine Pregnancy NEGATIVE (NEGATIVE)
[2024-04-30 01:07] LABS: MANUAL DIFF FLAG NO
[2024-04-30 01:09] LABS: Basophils Absolute Auto 0.1 X10*3/uL (0.0-0.2); Basophils Percent Auto 0.6 % (0-2); Eosinophils Absolute Auto 0.3 X10*3/uL (0.0-0.4); Eosinophils Percent Auto 3.1 % (0-4); Hemoglobin 14.5 g/dl (12.0-16.0); Imm Gran Abs Auto 0.02 X10*3/uL (0.00-0.03); Imm Gran Pct Auto 0.2 % (0.0-0.4); Lymphocytes Percent Auto 36.9 % (20-40); Mean Corpuscular HGB Conc 34.5 g/dl (31.0-35.0); Mean Corpuscular Hemoglobin 30.7 pg (27.0-33.0); Mean Platelet Volume 9.2 fL (9.4-12.3); Monocytes Absolute Auto 0.6 X10*3/uL (0.1-1.2); Monocytes Percent Auto 7.5 % (2-11); Neutrophils Absolute Auto 4.2 x10*3/uL (2.0-8.3); Neutrophils Percent Auto 51.7 % (45-73); Platelet Count 263 X10*3/uL (160-400); Red Blood Count 4.72 X10*6/uL (4.20-5.50); Red Cell Distribution Width 12.4 % (11.0-16.0); White Blood Count 8.1 X10*3/uL (4.8-10.8)
--- NOTE | 2024-04-30 01:15 | MHC.EDTECH ---
Patient blood drawn including both sets of blood culture and lactic acid all sent to lab .
[2024-04-30 01:20] LABS: Lactic Acid 0.8 mmol/L (0.5-2.0)
[2024-04-30 01:25] LABS: Alanine Aminotransferase 11 U/L (0-31); Albumin Level 4.4 g/dL (3.5-5.0); Alkaline Phosphatase 70 U/L (39-117); Anion Gap 14 (12-20); Aspartate Amino Transferase 15 U/L (5-31); Bilirubin Total 0.4 mg/dL (0.0-1.0); Blood Urea Nitrogen 17 mg/dL (9-16); Calcium 9.4 mg/dL (8.4-10.2); Carbon Dioxide 25 mmol/L (22-29); Chloride 107 mmol/L (96-108); Creatinine Clr Calc Pharmacy 75.8; Estimated Glomerular Filt Rate > 60; Glucose Random 84 mg/dL (60-115); Potassium 3.6 mmol/L (3.3-5.1); Sodium 142 mmol/L (135-145); Total Protein 7.4 g/dL (6.5-8.0)
[2024-04-30] MEDS: 0.9 % Sodium Chloride 1,000 ML 999 ML IV (01:28)
[2024-04-30] MEDS: cefTRIAXone sodium 1 GM in 0.9 % Sodium Chloride 50 ML IV (01:28)
[2024-04-30 01:49] VITALS: BP 125/62; PULSE 54; RESP 16; TEMP 36.6; O2SAT 97
[2024-04-30 05:45] VITALS: BP 106/50; PULSE 58; RESP 14; TEMP 36.5; O2SAT 98
[2024-04-30 05:48] VITALS: BP 106/50; PULSE 58; RESP 14; TEMP 36.5; O2SAT 98
== END 2024-04-30 05:51 | disposition home or self-care (01) ==
PROVIDERS: Emergency Provider Internal Medicine; PCP Internal Medicine
DX: N39.0 Urinary tract infection, site not specified (principal); B96.20 Unspecified Escherichia coli [E. coli] as the cause of diseases classified elsewhere; B96.1 Klebsiella pneumoniae [K. pneumoniae] as the cause of diseases classified elsewhere
CPT/HCPCS: 36415; 74176; 80053; 81001; 81025; 83605; 85025; 87040; 87086; 87088; 87186; 96361; 96365; 99284; J0696

== ENCOUNTER 2024-07-27 11:02 | Emergency (ER) | payer OTHER, SELFPAY ==
--- NOTE | ~2024-07-27 | XR_ITS ---
EXAMINATION: XR FOOT AND ANKLE, LEFT CLINICAL INFORMATION: Twisted foot and ankle COMPARISON: None available. TECHNIQUE: 2 views of the left ankle 3 views of the left foot FINDINGS: No acute visible fracture or dislocation. Ankle mortise is symmetric. Joint space alignment maintained. Slight soft tissue swelling along the lateral malleolus. XR/XR foot LT min 3V IMPRESSION: 1. No acute visible fracture or dislocation. 2. Slight soft tissue swelling along the lateral malleolus. Electronically signed by: Meeta Kyle MD 07/27/2024 11:39 AM EDT
--- NOTE | ~2024-07-27 | XR_ITS ---
EXAMINATION: XR FOOT AND ANKLE, LEFT CLINICAL INFORMATION: Twisted foot and ankle COMPARISON: None available. TECHNIQUE: 2 views of the left ankle 3 views of the left foot FINDINGS: No acute visible fracture or dislocation. Ankle mortise is symmetric. Joint space alignment maintained. Slight soft tissue swelling along the lateral malleolus. XR/XR ankle LT min 3V IMPRESSION: 1. No acute visible fracture or dislocation. 2. Slight soft tissue swelling along the lateral malleolus. Electronically signed by: Meeta Kyle MD 07/27/2024 11:39 AM EDT
[2024-07-27 11:08] VITALS: BP 105/68; PULSE 112; RESP 16; TEMP 36.4; O2SAT 99; BMI 18.9
--- NOTE | 2024-07-27 11:10 | ED.LOWEXIN ---
HPI - Extremity Injury (Lower) General Chief Complaint: Extremity Injury, Lower Stated Complaint: L ankle inj Time Seen by Provider: 07/27/24 11:14 Source: patient Mode of arrival: wheelchair Limitations: no limitations History of Present Illness ED Provider: Vicki Lundy PA-C HPI Narrative: 18-year-old female presents to the ER for evaluation of left ankle pain, swelling and bruising that started yesterday after she rolled it while playing a video game at an arcade. Patient states she was jumping over an inches stick at a an arcade when she twisted her left ankle. She has been unable to bear weight since. She reports pain with any movement of the foot or ankle. No numbness, tingling or weakness. No other injuries. MD complaint: ankle injury and foot injury Onset (ago): hour(s) Type of Injury: inversion Place: other ([place]) Severity: severe Relieving factors: immobilization and rest Exacerbating factors: weight bearing, movement and palpation Context: jumping Associated symptoms: swelling and unable to bear weight Other symptoms: none Related Data Previous Rx's ?Medication ?Instructions ?Recorded cefuroxime axetil 250 mg tablet 250 mg PO BID 7 days #14 tabs 12/09/23 phenazopyridine 100 mg tablet 100 mg PO TID #5 tabs 12/09/23 (Pyridium) cefuroxime axetil 250 mg tablet 250 mg PO Q12H #10 tabs 03/04/24 cefuroxime axetil 250 mg tablet 250 mg PO BID 7 days #14 tabs 03/25/24 nitrofurantoin 100 mg PO BID #20 caps 04/11/24 monohydrate/macrocrystals 100 mg capsule (Macrobid) ciprofloxacin HCl 250 mg tablet 250 mg PO BID #20 tabs 04/30/24 (Cipro) Allergies Allergy/AdvReac Type Severity Reaction Status Date / Time ibuprofen AdvReac Unknown Verified 07/27/24 11:12 Review of Systems Review of Systems: Yes all other systems are reviewed and are negative [facility] Past Medical History Medical History Congenital single kidney Social History Social History Alcohol intake: current Alcohol intake frequency: holidays/special occasions only Substance Use Type: Marijuana Advance Directives: No Advance Directives Information Provided: No Physical Exam Vital Signs: Vital Signs: Last Vital Signs Temp 97.6 F 07/27/24 11:08 Pulse 112 H 07/27/24 11:08 Resp 16 07/27/24 11:08 BP 105/68 07/27/24 11:08 Pulse Ox 99 07/27/24 11:08 O2 Del Method Room Air 07/27/24 11:08 BMI result Body Mass Index 18.9 Appearance: Alert. Oriented X3. No acute distress. HEENT: normal inspection CVS: Normal heart rate and rhythm. Pulses normal. Respiratory: No respiratory distress. Skin: Skin warm and dry. Normal skin color. Normal skin turgor. No rashes. Extremities: Left lateral ankle with mild diffuse swelling, ecchymosis of the left lateral ankle and left side of the foot. Pain with dorsiflexion and plantar flexion. Foot is warm and well perfused with 2+ DP and PT pulses. No sensory deficit. Tenderness of the lateral malleolus. Normal inspection and palpation of the medial malleolus Neuro: Oriented X 3. No motor deficit. No sensory deficit. Gait not tested due to pain Course Course Course Narrative: This is a Rapid Medical Examination (RME) performed by Kenny Dean PA-C in triage. Full HPI, ROS, assessment and treatment plan per primary provider in the Main ED. 18 yo female here for eval of left ankle pain s/p twisting injury last night. unable to bear weight on LLE. Plan: xr Medical Decision Making Medical Decision Making MDM Narrative: 18-year-old female presents the ER for evaluation of left ankle and foot pain, swelling, bruising after she twisted it while jumping while playing a game yesterday at an arcade. Unable to bear weight since. X-rays done and reviewed, no evidence of acute fracture. Will treat for ankle sprain and strain with Pedrito wrap, rest, ice, compression, elevation, NSAIDs and crutches. Discussed diagnosis and expected course with patient. Stable for discharge home with outpatient follow-up as needed. Differential Diagnosis Differential Diagnoses: The differential diagnosis associated with the presentation includes Ankle sprain, ankle sprain, ankle fracture, foot fracture Independent Interpretation I performed an independent interpretation of an: Plain X-Ray Interpretation: No acute fracture of the ankle or foot Radiology Impression Discussion of test interpretation with radiology: I have reviewed the radiologist's reading. Independent Historian Clinical information obtained from an independent historian. History obtained from or confirmed by: Friend External Record Review External record reviewed: Outpatient record, Prior outpatient labs and Prior outpatient radiology Prescription Management I considered prescription management with: Pain Medication Critical Care Time Critical Care Time Critical Care Time: No Discharge Plan Discharge Clinical Impression: Ankle sprain and strain Patient Disposition: Home, Self-Care Instructions: Ankle Sprain (DC) Additional Instructions: Your x-ray today was normal. Rest your ankle and elevate your foot when possible. Recommend PEDRITO wrap for support and compression. Use ice several times per day for the next 48 hours. You may bear weight as tolerated. If pain is too severe, use crutches until better. Take Motrin and/or Tylenol as needed for pain. Follow up with your doctor as needed. Prescriptions: No Action cefuroxime axetil 250 mg tablet 250 mg PO BID 7 Days Qty: 14 0RF phenazopyridine [Pyridium] 100 mg tablet 100 mg PO TID Qty: 5 0RF cefuroxime axetil 250 mg tablet 250 mg PO Q12H Qty: 10 0RF cefuroxime axetil 250 mg tablet 250 mg PO BID 7 Days Qty: 14 0RF nitrofurantoin monohyd/m-cryst [Macrobid] 100 mg capsule 100 mg PO BID Qty: 20 0RF Rx Instructions: must administer with a meal/food ciprofloxacin HCl [Cipro] 250 mg tablet 250 mg PO BID Qty: 20 0RF Print Language: Botswanan
[2024-07-27 12:05] VITALS: BP 105/68; PULSE 112; RESP 16; TEMP 36.4; O2SAT 99
== END 2024-07-27 12:06 | disposition home or self-care (01) ==
PROVIDERS: Emergency Provider Emergency Medicine; PCP Internal Medicine
DX: S93.402A Sprain of unspecified ligament of left ankle, initial encounter (principal); M25.572 Pain in left ankle and joints of left foot; X50.1XXA Overexertion from prolonged static or awkward postures, initial encounter; Y93.89 Activity, other specified; Y92.89 Other specified places as the place of occurrence of the external cause; Y99.8 Other external cause status
CPT/HCPCS: 73610; 73630; 99282; 99283

== ENCOUNTER 2024-09-13 18:59 | Emergency (ER) | payer OTHER, SELFPAY ==
[2024-09-13 19:31] VITALS: BP 132/83; PULSE 107; RESP 18; TEMP 37.3; BMI 17.3
--- NOTE | 2024-09-13 19:31 | ED.FEMALEGU ---
HPI - Female Genitourinary General Chief complaint: Urogenital-Female Stated complaint: abd pain, cramping Time Seen by Provider: 09/13/24 22:20 Source: patient and old records reviewed Mode of arrival: ambulatory Limitations: no limitations History of Present Illness ED Provider: Cheyanne REILLY Narrative: This is a 18-year-old female who presents to the ED for lower abdominal cramping pain for 1 week. Patient reports her menstrual period ended on the , however has had bilateral lower abdominal cramping after her menstrual cycle ended. She reports that typically her menstrual periods are regular, an typically does not have cramping afterwards. She is not on any control, and had her IUD removed in March. She also is reporting vaginal discharge, that is clear/pink and collar, is without any odors. She also has had nausea in the mornings for the past week. She also endorses 4 bouts of diarrhea today, however she attributes this to eating [employer] last night. Past medical history includes frequent UTIs, has 1 kidney. She denies fevers, vomiting, or any urinary symptoms including frequency, urgency, pain with urination. Related Data Previous Rx's ?Medication ?Instructions ?Recorded cefuroxime axetil 250 mg tablet 250 mg PO BID 7 days #14 tabs 12/09/23 phenazopyridine 100 mg tablet 100 mg PO TID #5 tabs 12/09/23 (Pyridium) cefuroxime axetil 250 mg tablet 250 mg PO Q12H #10 tabs 03/04/24 cefuroxime axetil 250 mg tablet 250 mg PO BID 7 days #14 tabs 03/25/24 nitrofurantoin 100 mg PO BID #20 caps 04/11/24 monohydrate/macrocrystals 100 mg capsule (Macrobid) ciprofloxacin HCl 250 mg tablet 250 mg PO BID #20 tabs 04/30/24 (Cipro) cefuroxime axetil 250 mg tablet 250 mg PO Q12H #10 tabs 09/13/24 Allergies Allergy/AdvReac Type Severity Reaction Status Date / Time ibuprofen AdvReac Unknown Verified 09/13/24 19:32 Review of Systems Constitutional: Constitutional: Denies body ache(s), Denies chills and Denies fever(s) Eyes: Eyes: Denies blurry vision Cardiovascular: Cardiovascular: Denies chest pain Gastrointestinal: Gastrointestinal: Reports abdominal pain, Reports diarrhea, Reports nausea and Denies vomiting Genitourinary: Genitourinary: Reports vaginal discharge and Denies vaginal odor PMF Past Medical History Medical History Congenital single kidney Social History Social History Alcohol intake: current Alcohol intake frequency: holidays/special occasions only Substance Use Type: Marijuana Advance Directives: No Advance Directives Information Provided: No Do you have a plan to hurt others: No Plan Physical Exam Vital Signs: Vital Signs: Last Vital Signs Temp 98.2 F 09/13/24 23:58 Pulse 92 09/13/24 23:58 Resp 16 09/13/24 23:58 BP 115/63 09/13/24 23:58 Pulse Ox 93 09/13/24 23:58 O2 Del Method Room Air 09/13/24 23:58 BMI result Body Mass Index 17.3 Const: General: cooperative, comfortable and no acute distress Nutritional Appearance: thin Orientation/consciousness: patient oriented x3 Limitations: no limitations HEENT: Head: Yes normocephalic and Yes atraumatic Eyes: Eyelids: Yes eyelids normal Conjunctivae: conjunctivae normal Sclerae: sclerae normal Corneas: corneas normal EOM: EOMs intact bilaterally Neck: Neck: Yes full ROM Resp: Effort & Inspection: normal respiratory effort, able to speak in complete sentences and not labored Cardio: Rate: regular rate Rhythm: regular rhythm GI: Inspection: No distended Palpation (GI): Soft to palpation, not firm, nontender, no guarding and not rigid : Other: Soft, nondistended abdomen Tenderness to palpation of the suprapubic area, with guarding. No overlying skin changes. Skin: General skin exam: elasticity normal Neuro: General: patient oriented x3 Cranial nerves: Yes CN's II-XII intact bilaterally and Yes Bilaterally intact EOM present Cognition (Neuro): normal cognition Course Course Course Narrative: This is a rapid medical exam. Deferred additional HPI, ROS, PE to primary provider. 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 LMP 12/5 Sexually active. Would like STI testing. Not currently on control Will order UA, ur preg, pelvic exam and STI testing, CAMILLA Galan APRN Reevaluation(s) Reevaluation #1: The patient and her significant other had an incident with a staff member that they apparently new. The patient requested to be discharged with her swab still pending. She was treated for her UTI Time: 00:16 Medications Administered Discontinued Medications Generic Name Dose Route Start Last Admin Trade Name Fredena PRN Reason Stop Dose Admin Cefuroxime Axetil 250 mg 09/13/24 23:28 09/13/24 23:46 Cefuroxime Axetil 250 Mg Tablet PO 09/13/24 23:29 250 mg ONCE ONE Administration Medical Decision Making Medical Decision Making [facility] Narrative: 18-year-old female presents for evaluation of lower abdominal pain with vaginal discharge. Patient has no fever, there is no evidence of sepsis, her exam is reassuring. Her urinalysis is positive for a UTI. She swabs herself for gonorrhea, chlamydia, bacterial vaginosis panel. Differential Diagnosis Differential Diagnoses: The differential diagnosis associated with the presentation includes Urinary tract infection Bacterial vaginosis Trichomoniasis STI uterine fibroids Lab Data [facility] Lab Attestation statement: I reviewed the patient's lab results. Urinalysis positive for UTI Labs: Lab Results 09/13/24 Range/Units 22:01 Urine Color Dark Yellow Urine Appearance Cloudy Urine pH 5.5 (5.0-9.0) Ur Specific [place] >= 1.030 H (1.005-1.025) Urine Protein 30 (1+) H (Neg-Trace) mg/dL Urine Glucose (UA) Negative (Negative) mg/dL Urine Ketones 80 (Negative) mg/dL Urine Blood Negative (Negative) Urine Nitrite Positive H (Negative) Ur Leukocyte Esterase Moderate (2+) H (Negative) Urine RBC 3-5 H (0-2) /HPF Urine WBC >50 H (0-5) /HPF Ur Squamous Epith Cells 6-10 (0-2) /HPF Urine Bacteria 4+ (None Seen) Hyaline Casts 0-2 (0-2) /LPF Urine Test NEGATIVE (NEGATIVE) Discharge Plan Discharge Clinical Impression: UTI (urinary tract infection), Pelvic pain Patient Disposition: Home, Self-Care Instructions: Urinary Tract Infection in Women (ED), Pelvic Pain (ED) Additional Instructions: You had a urinary tract infection. We will call you if the swabs end up positive for gonorrhea/chlamydia. Take the antibiotic twice daily for 1 week. You may also use [id number] azo to help with the symptoms Take Tylenol as needed for pain Follow-up with your primary doctor, return for new or worsening symptoms Prescriptions: New cefuroxime axetil 250 mg tablet 250 mg PO Q12H Qty: 10 0RF No Action cefuroxime axetil 250 mg tablet 250 mg PO BID 7 Days Qty: 14 0RF phenazopyridine [Pyridium] 100 mg tablet 100 mg PO TID Qty: 5 0RF cefuroxime axetil 250 mg tablet 250 mg PO Q12H Qty: 10 0RF cefuroxime axetil 250 mg tablet 250 mg PO BID 7 Days Qty: 14 0RF nitrofurantoin monohyd/m-cryst [Macrobid] 100 mg capsule 100 mg PO BID Qty: 20 0RF Rx Instructions: must administer with a meal/food ciprofloxacin HCl [Cipro] 250 mg tablet 250 mg PO BID Qty: 20 0RF Interventions: ED Discharge Assessment Last Done: 09/13/24 23:58 Discharge Date/Time: 09/13/24 23:59 Print Language: [place]ian
[2024-09-13 21:59] VITALS: BP 115/63; PULSE 92; RESP 16; TEMP 36.8; O2SAT 93
[2024-09-13 22:08] LABS: Appearance Urine Cloudy; Color Urine Dark Yellow; Glucose Urine UA Negative (Negative); Leukocyte Esterase Urine Moderate (2+) (Negative); Nitrite Urine Positive (Negative); PH 5.5 (5.0-9.0); Specific Gravity - Urine >= 1.030 (1.005-1.025); UMIC TRIGGER UACC YES; Urine Blood Negative (Negative); Urine Ketones 80 mg/dL (Negative); Urine Protein 30 (1+) mg/dL (Neg-Trace)
[2024-09-13 22:09] LABS: Urine Pregnancy NEGATIVE (NEGATIVE)
[2024-09-13 22:10] LABS: UPreg QC Valid YES
[2024-09-13 22:22] LABS: Bacteria Urine 4+ (None Seen); Hyaline Casts Urine 0-2 /LPF (0-2); UACC Culture Trigger YES; WBC Urine >50 /HPF (0-5)
[2024-09-13] MEDS: cefuroxime axetiL 250 MG TABLET PO (23:46)
[2024-09-13 23:58] VITALS: BP 115/63; PULSE 92; RESP 16; TEMP 36.8; O2SAT 93
[2024-09-14 11:35] LABS: Bacterial Vaginosis PCR POSITIVE (Negative); Candida Group PCR NOT DETECTED (Not Detect); Candida glab krusei PCR NOT DETECTED (Not Detect); Trichomonas vaginalis PCR NOT DETECTED (Not Detect)
[2024-09-14 12:03] LABS: CT PCR DETECTED (Not Detect.); NG PCR NOT DETECTED (Not Detect.)
== END 2024-09-13 23:59 | disposition home or self-care (01) ==
PROVIDERS: Nurse Practitioner Family; Emergency Provider Internal Medicine; PCP Internal Medicine
DX: N39.0 Urinary tract infection, site not specified (principal); R10.2 Pelvic and perineal pain; N76.0 Acute vaginitis; A74.9 Chlamydial infection, unspecified; Z87.440 Personal history of urinary (tract) infections
CPT/HCPCS: 0352U; 81001; 81025; 87086; 87088; 87186; 87491; 87591; 99283

== ENCOUNTER 2024-11-01 00:57 | Emergency (ER) | payer SELFPAY ==
[2024-11-01 01:04] VITALS: PULSE 75; RESP 16; TEMP 37; O2SAT 100; BMI 17.9
--- NOTE | 2024-11-01 02:10 | MHC.EDTECH ---
Patient brought into triage area,CTNG,and UACC obtained and sent to lab
[2024-11-01 02:19] LABS: Appearance Urine Cloudy; Color Urine Yellow; Glucose Urine UA Negative (Negative); Leukocyte Esterase Urine Trace (Negative); Nitrite Urine Negative (Negative); PH 5.5 (5.0-9.0); Specific Gravity - Urine >= 1.030 (1.005-1.025); UMIC TRIGGER UACC YES; Urine Blood Large (3+) (Negative); Urine Ketones Trace mg/dL (Negative); Urine Protein 30 (1+) mg/dL (Neg-Trace)
[2024-11-01 02:45] LABS: Bacteria Urine 2+ (None Seen); Hyaline Casts Urine 0-2 /LPF (0-2); RBC Urine >20 /HPF (0-2); UACC Culture Trigger YES
[2024-11-01 03:52] LABS: CT PCR NOT DETECTED (Not Detect.); NG PCR NOT DETECTED (Not Detect.)
--- NOTE | 2024-11-01 05:57 | PC.NURSE ---
pt resting in bed awaiting to be seen.
--- NOTE | 2024-11-01 06:11 | ED_ITS ---
HPI - Female Genitourinary General Chief complaint: Urogenital-Female Stated complaint: uro gen female Time Seen by Provider: 11/01/24 06:05 Source: patient and old records reviewed Mode of arrival: ambulatory Limitations: no limitations History of Present Illness ED Provider: TOR REILLY Narrative: 18 yo female who has no PMH reports she was exposed by ex partner to chlamydia she was treated and then she went back to her partner recently he did show her negative test of cure. After they had sex which was unprotected she noted she had discharge and it smelled different. No pain, fevers, n/v. She does not she is starting her menses. She has no abdominal pain. MD elicited complaint: vaginal discharge Pertinent past history: STI/STD Onset (ago): day(s) (few) Location of symptoms: vaginal Severity: mild Consistency: intermittent Vaginal discharge: vaginal odor Vaginal bleeding: scant (start of her menses) Exacerbating factors: none Relieving factors: none Associated symptoms: denies other symptoms Treatment prior to arrival: none Sexual activity: Yes Related Data Previous Rx's ?Medication ?Instructions ?Recorded cefuroxime axetil 250 mg tablet 250 mg PO BID 7 days #14 tabs 12/09/23 phenazopyridine 100 mg tablet 100 mg PO TID #5 tabs 12/09/23 (Pyridium) cefuroxime axetil 250 mg tablet 250 mg PO Q12H #10 tabs 03/04/24 cefuroxime axetil 250 mg tablet 250 mg PO BID 7 days #14 tabs 03/25/24 nitrofurantoin 100 mg PO BID #20 caps 04/11/24 monohydrate/macrocrystals 100 mg capsule (Macrobid) ciprofloxacin HCl 250 mg tablet 250 mg PO BID #20 tabs 04/30/24 (Cipro) cefuroxime axetil 250 mg tablet 250 mg PO Q12H #10 tabs 09/13/24 doxycycline hyclate 100 mg capsule 100 mg PO BID #14 caps 09/16/24 metronidazole 500 mg tablet 500 mg PO BID #14 tabs 09/16/24 metronidazole 0.75 % (37.5 mg/5 1 appful vaginal DAILY 5 days #70 11/01/24 gram) vaginal gel grams Allergies Allergy/AdvReac Type Severity Reaction Status Date / Time ibuprofen AdvReac Unknown Verified 11/01/24 01:06 Review of Systems Review of Systems: Constitutional : No Fever, No Chills, No Fatigue ENT/Mouth : No sore throat, No Rhinorrhea Eyes: No Eye Pain, No Swelling, No Redness Cardiovascular : No Chest Pain, No SOB, No Dyspnea on Exertion Respiratory : No Cough, No Sputum Gastrointestinal : No Nausea, No Vomiting, No Diarrhea, No abdominal Pain Genitourinary : No Dysuria, No Urinary Frequency, No Hematuria, pos vag discharge and odor Musculoskeletal : No joint pain, No Myalgias, No Joint Swelling Skin : No Skin Lesions, No rash Neuro : No Weakness, No Numbness, No Dizziness, no Headache All other systems reviewed and are negative PMFSH Past Medical History Attestation statement: The following information was validated with the patient. Source: old records reviewed Medical History Congenital single kidney Social History Social History Alcohol intake: current Alcohol intake frequency: does not drink Smoked in Last 30 Days: Yes Use of substances other than those prescribed or required for medical reasons: No Substance Use Type: Marijuana Advance Directives: No Advance Directives Information Provided: Yes Do you have a plan to hurt others: No Plan Physical Exam Vital Signs: Vital Signs: Last Vital Signs Temp 98.2 F 11/01/24 07:45 Pulse 71 11/01/24 07:45 Resp 16 11/01/24 07:45 BP 104/55 L 11/01/24 07:45 Pulse Ox 99 11/01/24 07:45 O2 Del Method Room Air 11/01/24 07:45 BMI result Body Mass Index 17.9 Appearance: Alert. Oriented X3. No acute distress. Eyes: Pupils equal, round and reactive to light. ENT: Pharynx normal. Neck: Normal inspection. Neck supple. CVS: Normal heart rate and rhythm. Pulses normal. Respiratory: No respiratory distress. Breath sounds normal. Abdomen: Soft and nontender. Skin: Skin warm and dry. Normal skin color. Normal skin turgor. Extremities: No lower extremity edema. No calf ttp Neuro: Oriented X 3. No motor deficit. No sensory deficit. CN2-12 intact Course Course Course Narrative: notified patient of BV results and Rx Medical Decision Making Medical Decision Making MDM Narrative: 18 yo female who has no PMH who is worried about repeat exposure to chlamydia after noticing an odor she has no abdominal pain no fevers no n/v. At this time will obtain NGCT testing, UA and trich/BV. She is overall well appearing and has no pain doubt PID or TOA. Since CTNG is negative will hold off treatment she agrees. Differential Diagnosis Differential Diagnoses: The differential diagnosis associated with the presentation includes BV, STI exposure, Admission/Observation Consideration of admission/observation: Escalation of care including admission/observation considered can be managed as outpatient no fevers and no abdominal pain Lab Data MDM Lab Attestation statement: I reviewed the patient's lab results. Labs: Lab Results 11/01/24 11/01/24 Range/Units 02:10 06:25 Urine Color Yellow Urine Appearance Cloudy Urine pH 5.5 (5.0-9.0) Ur Specific [place] >= 1.030 H (1.005-1.025) Urine Protein 30 (1+) H (Neg-Trace) mg/dL Urine Glucose (UA) Negative (Negative) mg/dL Urine Ketones Trace (Negative) mg/dL Urine Blood Large (3+) H (Negative) Urine Nitrite Negative (Negative) Ur Leukocyte Esterase Trace H (Negative) Urine RBC >20 H (0-2) /HPF Urine WBC 6-10 H (0-5) /HPF Ur Squamous Epith Cells 11-20 (0-2) /HPF Urine Bacteria 2+ (None Seen) Hyaline Casts 0-2 (0-2) /LPF Urine Test NEGATIVE (NEGATIVE) Chlam trachomat DNA PCR NOT DETECTED (Not Detect.) N.gonorrhoeae DNA (PCR) NOT DETECTED (Not Detect.) T. vaginalis (PCR) NOT DETECTED (Not Detect) Bact vaginosis (PCR) POSITIVE A (Negative) C. krusei/glabrata (PCR) NOT DETECTED (Not Detect) Maryanne group (PCR) NOT DETECTED (Not Detect) External Record Review External record reviewed: Outpatient record Discharge Plan Discharge Clinical Impression: Vaginal discharge, Bacterial vaginosis Patient Disposition: Home, Self-Care Instructions: Bacterial Vaginosis (ED), Vaginal Discharge (ED) Additional Instructions: currently your gonorrhea and chlamydia are negative your urine shows no infection but there is some blood suspect this is due to start of period I will call you if your BV and trichomonas are positive return for any worsening symptoms or complaints. Prescriptions: New metronidazole 0.75 % (37.5mg/5 gram) gel 1 appful vaginal DAILY 5 Days Qty: 70 0RF No Action cefuroxime axetil 250 mg tablet 250 mg PO BID 7 Days Qty: 14 0RF phenazopyridine [Pyridium] 100 mg tablet 100 mg PO TID Qty: 5 0RF cefuroxime axetil 250 mg tablet 250 mg PO Q12H Qty: 10 0RF cefuroxime axetil 250 mg tablet 250 mg PO BID 7 Days Qty: 14 0RF nitrofurantoin monohyd/m-cryst [Macrobid] 100 mg capsule 100 mg PO BID Qty: 20 0RF Rx Instructions: must administer with a meal/food ciprofloxacin HCl [Cipro] 250 mg tablet 250 mg PO BID Qty: 20 0RF cefuroxime axetil 250 mg tablet 250 mg PO Q12H Qty: 10 0RF doxycycline hyclate 100 mg capsule 100 mg PO BID Qty: 14 0RF metronidazole 500 mg tablet 500 mg PO BID Qty: 14 0RF Interventions: ED Discharge Assessment Last Done: 11/01/24 07:45 Discharge Date/Time: 11/01/24 07:46 Print Language: [place]ian
[2024-11-01 07:15] LABS: UPreg QC Valid YES
[2024-11-01 07:17] LABS: Urine Pregnancy NEGATIVE (NEGATIVE)
[2024-11-01 07:45] VITALS: BP 104/55; PULSE 71; RESP 16; TEMP 36.8; O2SAT 99
[2024-11-01 11:14] LABS: Bacterial Vaginosis PCR POSITIVE (Negative); Candida Group PCR NOT DETECTED (Not Detect); Candida glab krusei PCR NOT DETECTED (Not Detect); Trichomonas vaginalis PCR NOT DETECTED (Not Detect)
[2024-11-03 22:24] LABS: Trichomonas vaginalis RNA NOT DETECTED (NOT DETECTED)
== END 2024-11-01 07:46 | disposition home or self-care (01) ==
PROVIDERS: Emergency Provider Emergency Medicine; PCP Internal Medicine
DX: N76.0 Acute vaginitis (principal); Z90.5 Acquired absence of kidney; Q89.8 Other specified congenital malformations
CPT/HCPCS: 81001; 81025; 81515; 87086; 87491; 87591; 87661; 99283; 99284

== ENCOUNTER 2025-03-29 15:47 | Inpatient (IN) | payer SELFPAY ==
[2025-03-29] VITALS (7 sets, daily range): BP systolic 107–119; BP diastolic 57–64; PULSE 78–112; RESP 17–21; TEMP 37.2–39.4; O2SAT 98–99; BMI 18.9
--- NOTE | ~2025-03-29 | US_ITS ---
CLINICAL HISTORY: flank pain, UTI, single R kidney Social US retroperitoneum, attention right kidney: Comparison: None Findings: Right kidney normal size and echotexture, 11.6 cm length. There is moderate hydronephrosis. Normal color flow. Right kidney cortex echotexture is normal. Kidney cortex thickness is 2 cm. No intrarenal calculi. Urinary bladder is unremarkable. Urinary bladder is incompletely filled. No bladder masses are identified. A right ureteral jet is present. Impression: Moderate proximal right kidney collecting system hydronephrosis. This document has been electronically signed by: Bhavesh Smith MD on 03/29/2025 18:51:53
--- NOTE | 2025-03-29 16:10 | ED.GENADULT ---
HPI - General Adult General Chief complaint: Urogenital-Female Stated complaint: UTI? Time Seen by Provider: 03/29/25 16:54 Source: patient, RN notes reviewed and old records reviewed Mode of arrival: ambulatory Limitations: no limitations History of Present Illness ED Provider: Sparkle REILLY narrative: Patient is a 19-year-old female with history of Nager syndrome (cleft palate, skeletal abnormalities, single kidney) , frequent UTIs presenting to the emergency department with complaint of dysuria, frequency, fever, right flank pain, nausea. States symptoms began on Sunday night with an episode of urinary incontinence, then began to feel worse while at work on Sunday, by Sat night developed fever and flank pain. Denies vomiting. Reports associated hematuria and incomplete bladder emptying. Reports symptoms feel similar to prior UTIs. MD complaint: fever, flank pain Onset (ago): day(s) Related Data Home Medications ?Medication ?Instructions ?Recorded ?Confirmed acetaminophen 650 mg 650 - 1,300 mg PO Q12H PRN Pain 03/29/25 03/29/25 tablet,extended release multivitamin 1 tab PO DAILY 03/29/25 03/29/25 Allergies Allergy/AdvReac Type Severity Reaction Status Date / Time ibuprofen AdvReac kidney Verified 03/29/25 16:08 problems Review of Systems Review of Systems: As per HPI Yes all other systems are reviewed and are negative Constitutional: Constitutional: Reports as per HPI [facility] Past Medical History Medical History Congenital single kidney Social History Social History Alcohol intake: current Alcohol intake frequency: a few times a month Smoked in Last 30 Days: No Substance Use Type: Marijuana Advance Directives: No Advance Directives Information Provided: Yes Do you have a plan to hurt others: No Plan Patient : No Physical Exam ED Vital Signs: Vital Signs - 24 hr 03/29/25 16:04 03/29/25 17:39 03/29/25 17:44 Temperature 102.6 F H 102.9 F H Pulse Rate 112 H 78 101 H Respiratory Rate 18 18 17 Blood Pressure 119/57 L 112/63 108/59 L Pulse Oximetry 99 98 Oxygen Delivery Method Room Air Room Air 03/29/25 18:10 Temperature Pulse Rate 79 Respiratory Rate 18 Blood Pressure 119/64 Pulse Oximetry 99 Oxygen Delivery Method Room Air BMI result Body Mass Index 18.9 Vital signs have been reviewed and appear to be correct. Blood pressure normal. Heart rate mildly tachycardic. Respiratory rate normal. Temperature febrile. Oxygen saturation normal. Const General: cooperative, healthy appearing and no acute distress Orientation/consciousness: oriented to person, oriented to place, oriented to time and patient oriented x3 Limitations: no limitations HENMT Head: Yes normocephalic and Yes atraumatic Ears: external ears normal General nose exam: Normal external nose present Face and sinus: Yes face symmetric Mouth: oropharynx normal and moist mucous membranes Throat: Yes uvula midline Eyes Pupils: Equal, round and reactive pupils present Neck Neck: Yes normal visual inspection and Yes supple Resp Effort & Inspection: normal respiratory effort and able to speak in complete sentences Auscultation: clear to auscultation bilaterally Cardio Rate: regular rate Rhythm: regular rhythm Heart sounds: S1 normal heart sound present and S2 normal heart sound present GI Palpation (GI): Soft to palpation and Tenderness to palpation present (GI) suprapubicly Auscultation: normoactive bowel sounds General: Yes CVA tenderness on the right Back/Spine/Pelvis Back: CVA tenderness Skin General skin exam: elasticity normal and turgor normal Neuro General: oriented to person, oriented to place, oriented to time, patient oriented x3, moves all extremities, no focal motor deficits and CN's II-XI intact bilaterally Cranial nerves: Yes Equal, round and reactive pupils present Cognition (Neuro): normal cognition Extrem General: Yes full ROM, Yes no pedal edema and Yes no calf tenderness Psych Mental Status: mental status grossly normal Affect: normal affect Thought process: Normal thought process present Course Course Course Narrative: RME: 19 yold female history of UTIs presents to the ED for increased urinary frequency, flank pain, dysuria since Sunday with fever. Positive right CVA flank. Patient is febrile tachy. Patient is septic. Room is being cleaned for patient to be brought back to the ED labs fluids ordered Reevaluation(s) Reevaluation #1: Temp increased after Tylenol, unable to have ibuprofen. She was covered with many blankets which were removed. Additional IV fluids ordered. U/S results pending. Case discussed with Dr. Velasquez who accepts admission to hospitalist service. Time: 18:29 Medications Administered Generic Name Dose Route Start Last Admin Trade Name Freq PRN Reason Stop Dose Admin Acetaminophen 650 mg 03/29/25 19:29 03/29/25 22:08 Acetaminophen 325 Mg Tablet PO 650 mg Q6H PRN Administration Pain, Mild 1-3,fever,headache Enoxaparin Sodium 40 mg 03/29/25 20:00 03/29/25 19:52 Enoxaparin Sodium 40 Mg/0.4 Ml Syringe SUBCUT Not Given Q24H JOSELUIS Lactated Ringer's 1,000 mls @ 100 mls/hr 03/29/25 19:30 03/29/25 19:51 Lr IVCONT 100 mls/hr .Q10H JOSELUIS Administration Oxycodone HCl 5 mg 03/29/25 19:29 03/29/25 19:45 Oxycodone Hcl Immed Release 5 Mg Tablet PO 5 mg Q6H PRN Administration Pain, Severe (Pain Scale 7-10) Discontinued Medications Generic Name Dose Route Start Last Admin Trade Name Freq PRN Reason Stop Dose Admin Acetaminophen 975 mg 03/29/25 17:09 03/29/25 17:13 Acetaminophen 325 Mg Tablet PO 03/29/25 17:10 975 mg ONCE ONE Administration Ceftriaxone Sodium 1 gm 03/29/25 16:59 03/29/25 17:00 Ceftriaxone Sodium 1 Gm Vial IVPUSH 03/29/25 17:00 1 gm ONCE ONE Administration Sodium Chloride 1,000 mls @ 999 mls/hr 03/29/25 16:09 03/29/25 17:39 Ns IV 03/29/25 17:09 Infused .Q1H1M STA Infusion Sodium Chloride 1,000 mls @ 999 mls/hr 03/29/25 18:30 03/29/25 19:45 Ns IV 03/29/25 19:30 Infused .Q1H1M JOSELUIS Infusion Medical Decision Making Medical Decision Making MDM Narrative: Patient is a 19-year-old female with history of Nager syndrome (cleft palate, skeletal abnormalities, single kidney), frequent UTIs presenting to the emergency department with complaint of dysuria, frequency, fever, right flank pain, nausea. On exam patient is awake, A+Ox3, VS WNL, afebrile, normal neurological exam without focal deficits, physical exam findings as above. Given reported symptoms and physical exam findings, initial differential includes but is not limited to UTI/pyelonephritis, sepsis, obstructing calculi, hydronephrosis. Labs notable for leukocytosis, no CARLOS. UA notable for 2+ leukocytes, positive nitrites, 2+ blood, >50 WBCs, 4+ bacteria. See course for remainder of clinical decision making. Differential Diagnosis Differential Diagnoses: The differential diagnosis associated with the presentation includes As per [facility] Admission/Observation Consideration of admission/observation: Escalation of care including admission/observation considered Consult Healthcare Provider Management of the patient was discussed with: Hospitalist Lab Data [facility] Lab Attestation statement: I reviewed the patient's lab results. As per [facility] 03/29/25 16:26 03/29/25 16:26 Labs: Lab Results 03/29/25 03/29/25 Range/Units 16:26 16:28 WBC 13.0 H (4.8-10.8) X10*3/uL RBC 4.30 (4.20-5.50) X10*6/uL Hgb 12.2 (12.0-16.0) g/dl Hct 36.3 L (37.0-47.0) % MCV 84.4 (80.0-98.0) fL MCH 28.4 (27.0-33.0) pg MCHC 33.6 (31.0-35.0) g/dl RDW 13.8 (11.0-16.0) % Plt Count 220 (160-400) X10*3/uL MPV 9.2 L (9.4-12.3) fL Immature Gran % (Auto) 0.4 (0.0-0.4) % Neut % (Auto) 84.1 H (45-73) % Lymph % (Auto) 9.2 L (20-40) % [place] % (Auto) 5.9 (2-11) % Eos % (Auto) 0.2 (0-4) % Baso % (Auto) 0.2 (0-2) % Lymph # (Auto) 1.2 (1.2-4.9) X10*3/uL [place] # (Auto) 0.8 (0.1-1.2) X10*3/uL Eos # (Auto) 0.0 (0.0-0.4) X10*3/uL Baso # (Auto) 0.0 (0.0-0.2) X10*3/uL Abs Immat Gran (auto) 0.05 H (0.00-0.03) X10*3/uL Absolute Neuts (auto) 10.9 H (2.0-8.3) x10*3/uL Absolute Nucleated RBC 0.000 (0.0-0.012) X10*3/uL Nucleated RBC % (auto) 0.0 (0.0-0.2) /100WBC Sodium 137 (135-145) mmol/L Potassium 3.5 (3.3-5.1) mmol/L Chloride 104 (96-108) mmol/L Carbon Dioxide 24 (22-29) mmol/L Anion Gap 13 (12-20) BUN 10 (9-16) mg/dL Creatinine 0.76 (0.5-1.4) mg/dL Estim Creat Clear Calc 83.8 Estimated GFR > 60 Random Glucose 127 H (60-115) mg/dL Lactic Acid 1.3 (0.5-2.0) mmol/L Calcium 9.0 (8.4-10.2) mg/dL Total Bilirubin 0.8 (0.0-1.0) mg/dL AST 16 (5-31) U/L ALT 10 (0-31) U/L Alkaline Phosphatase 68 (39-117) U/L Total Protein 7.1 (6.5-8.0) g/dL Albumin 4.4 (3.5-5.0) g/dL Lipase 19 (8-78) U/L Beta HCG, Quant < 2 mIU/mL Urine Color Yellow Urine Appearance Cloudy Urine pH 5.5 (5.0-9.0) Ur Specific [place] 1.025 (1.005-1.025) Urine Protein 30 (1+) H (Neg-Trace) mg/dL Urine Glucose (UA) Negative (Negative) mg/dL Urine Ketones Trace (Negative) mg/dL Urine Blood Moderate (2+) H (Negative) Urine Nitrite Positive H (Negative) Ur Leukocyte Esterase Moderate (2+) H (Negative) Urine RBC 6-10 H (0-2) /HPF Urine WBC >50 H (0-5) /HPF Ur Squamous Epith Cells 6-10 (0-2) /HPF Urine Bacteria 4+ (None Seen) Hyaline Casts 0-2 (0-2) /LPF External Record Review External record reviewed: Inpatient record, Office record and Outpatient record Prescription Management I considered prescription management with: Antibiotic and Other Critical Care Time Critical Care Time Critical Care Time: Yes Total Critical Care Time: 44 Attestation: I have personally provided critical care time exclusive of time spent on separately billable procedures. Time includes review of lab data, radiology results, discussion with consultants, and monitoring for potential decompensation. Intervention performed as documented. Discharge Plan Discharge Clinical Impression: Urinary tract infection Qualifiers: Urinary tract infection type: site unspecified Hematuria presence: with hematuria Qualified Code(s): N39.0 - Urinary tract infection, site not specified Sepsis Qualifiers: Sepsis type: sepsis due to unspecified organism Sepsis acute organ dysfunction status: without acute organ dysfunction Qualified Code(s): A41.9 - Sepsis, unspecified organism Patient Disposition: Admitted As Inpatient
[2025-03-29 16:31] LABS: MANUAL DIFF FLAG NO
[2025-03-29 16:33] LABS: Basophils Percent Auto 0.2 % (0-2); Eosinophils Percent Auto 0.2 % (0-4); Hematocrit 36.3 % (37.0-47.0); Hemoglobin 12.2 g/dl (12.0-16.0); Imm Gran Abs Auto 0.05 X10*3/uL (0.00-0.03); Imm Gran Pct Auto 0.4 % (0.0-0.4); Lymphocytes Absolute Auto 1.2 X10*3/uL (1.2-4.9); Lymphocytes Percent Auto 9.2 % (20-40); Mean Corpuscular HGB Conc 33.6 g/dl (31.0-35.0); Mean Corpuscular Hemoglobin 28.4 pg (27.0-33.0); Mean Corpuscular Volume 84.4 fL (80.0-98.0); Mean Platelet Volume 9.2 fL (9.4-12.3); Monocytes Absolute Auto 0.8 X10*3/uL (0.1-1.2); Monocytes Percent Auto 5.9 % (2-11); Neutrophils Absolute Auto 10.9 x10*3/uL (2.0-8.3); Neutrophils Percent Auto 84.1 % (45-73); Platelet Count 220 X10*3/uL (160-400); Red Cell Distribution Width 13.8 % (11.0-16.0)
[2025-03-29 16:36] LABS: Appearance Urine Cloudy; Color Urine Yellow; Glucose Urine UA Negative (Negative); Leukocyte Esterase Urine Moderate (2+) (Negative); Nitrite Urine Positive (Negative); PH 5.5 (5.0-9.0); Specific Gravity - Urine 1.025 (1.005-1.025); UMIC TRIGGER UACC YES; Urine Blood Moderate (2+) (Negative); Urine Ketones Trace mg/dL (Negative); Urine Protein 30 (1+) mg/dL (Neg-Trace)
[2025-03-29] MEDS: 0.9 % Sodium Chloride 1,000 ML 999 ML IV ×2 (16:38→18:44)
[2025-03-29 16:41] LABS: Bacteria Urine 4+ (None Seen); Hyaline Casts Urine 0-2 /LPF (0-2); UACC Culture Trigger YES; WBC Urine >50 /HPF (0-5)
[2025-03-29 16:45] LABS: Lactic Acid 1.3 mmol/L (0.5-2.0)
[2025-03-29 16:53] LABS: Alanine Aminotransferase 10 U/L (0-31); Albumin Level 4.4 g/dL (3.5-5.0); Alkaline Phosphatase 68 U/L (39-117); Anion Gap 13 (12-20); Aspartate Amino Transferase 16 U/L (5-31); Bilirubin Total 0.8 mg/dL (0.0-1.0); Blood Urea Nitrogen 10 mg/dL (9-16); Carbon Dioxide 24 mmol/L (22-29); Chloride 104 mmol/L (96-108); Creatinine Clr Calc Pharmacy 83.8; Estimated Glomerular Filt Rate > 60; Glucose Random 127 mg/dL (60-115); Lipase 19 U/L (8-78); Potassium 3.5 mmol/L (3.3-5.1); Sodium 137 mmol/L (135-145); Total Protein 7.1 g/dL (6.5-8.0)
[2025-03-29] MEDS: cefTRIAXone sodium 1 GM VIAL IVPUSH (17:00)
[2025-03-29 17:01] LABS: HCG Quantitative < 2 mIU/mL
[2025-03-29] MEDS: Acetaminophen 325 MG TABLET 975 MG PO (17:13)
--- NOTE | 2025-03-29 18:59 | PHA.MEDREC ---
Addendum entered by Rolando Serna [facility] 03/29/25 19:01: MED REC [facility] Original Note: Pharmacy Consult ? Medication Reconciliation Pharmacy has completed the medication reconciliation. Spoke with patient to confirm.
--- NOTE | 2025-03-29 19:32 | PM.IMHP ---
History of Present Illness Date of Service: 03/29/25 Chief Complaint: Flank pain 19-year-old female with a past medical history of Nager syndrome (cleft palate, skeletal abnormalities, single kidney), history of recurrent UTIs presented to the hospital with a chief complaint of right flank pain since Sunday. Patient mentions since Sunday she has been having constant right flank pain Nausea. Denies any abdominal pain per se. Denies any hematuria. Denies any chest pain or palpitations. Records subjective fevers. Review of all other systems is negative except mentioned above ER course: Per ER team, patient on presentation noted to have flank tenderness; urinalysis abnormal consistent with UTI. Ultrasound showed moderate right-sided hydronephrosis. Patient qualified for sepsis criteria. Patient was febrile on presentation. Given IV fluids. Given ceftriaxone. [facility] Medical History Congenital single kidney Social History Alcohol intake: current Alcohol intake frequency: a few times a month Smoked in Last 30 Days: No Substance Use Type: Marijuana Advance Directives: No Advance Directives Information Provided: Yes Do you have a plan to hurt others: No Plan Patient : No Meds Allergies Allergy/AdvReac Type Severity Reaction Status Date / Time ibuprofen AdvReac kidney Verified 03/29/25 16:08 problems Active Medications: Current Medications Acetaminophen (Acetaminophen 325 Mg Tablet) 650 mg PO Q6H PRN PRN Reason: Pain, Mild 1-3,fever,headache Calcium Carbonate (Calcium Carbonate 750 Mg Tab.Chew) 750 mg PO Q4H PRN PRN Reason: Heartburn Enoxaparin Sodium (Enoxaparin Sodium 40 Mg/0.4 Ml Syringe) 40 mg SUBCUT Q24H JOSELUIS Lactated Ringer's (Lr) 1,000 mls @ 100 mls/hr IVCONT .Q10H JOSELUIS Magnesium Hydroxide (Milk Of Magnesia 30 Ml Oral.Susp) 30 ml PO DAILY PRN PRN Reason: Constipation Melatonin (Melatonin 3 Mg Tablet) 6 mg PO BEDTIME PRN PRN Reason: Insomnia Oxycodone HCl (Oxycodone Hcl Immed Release 5 Mg Tablet) 5 mg PO Q6H PRN PRN Reason: Pain, Severe (Pain Scale 7-10) Sodium Chloride (0.9 % Sodium Chloride Flush 3 Ml Syringe) 3 ml IVFLUSH QSHIFT [facility] Home Medications ?Medication ?Instructions ?Recorded ?Confirmed ?Last Taken ?Type acetaminophen 650 mg 650 - 1,300 mg PO Q12H PRN Pain 03/29/25 03/29/25 03/29/25 History tablet,extended release multivitamin 1 tab PO DAILY 03/29/25 03/29/25 Unknown History Physical Exam Vital Signs and Narrative: Vital Signs: Last Vital Signs Temp 102.9 F H 03/29/25 17:44 Pulse 101 H 03/29/25 17:44 Resp 17 03/29/25 17:44 BP 108/59 L 03/29/25 17:44 Pulse Ox 99 03/29/25 16:04 O2 Del Method Room Air 03/29/25 16:04 BMI result Body Mass Index 18.9 Gen: Appears be in no acute distress HEENT: NCAT, Moist mucosa. Pulmonary: Vesicular breath sounds, fair air entry CVS: Normal S1-S2 Abdomen: BS+, Soft, tender in the right flank Extremities: Warm well perfused Neuro: Alert and awake. Results Labs 03/29/25 16:26 03/29/25 16:26 Labs: Laboratory Results - last 24 hr 03/29/25 03/29/25 16:26 16:28 MCV 84.4 MCH 28.4 MCHC 33.6 RDW 13.8 Plt Count 220 MPV 9.2 L Immature Gran % (Auto) 0.4 Neut % (Auto) 84.1 H Lymph % (Auto) 9.2 L [place] % (Auto) 5.9 Eos % (Auto) 0.2 Baso % (Auto) 0.2 Lymph # (Auto) 1.2 [place] # (Auto) 0.8 Eos # (Auto) 0.0 Baso # (Auto) 0.0 Abs Immat Gran (auto) 0.05 H Absolute Neuts (auto) 10.9 H Absolute Nucleated RBC 0.000 Nucleated RBC % (auto) 0.0 Anion Gap 13 Estim Creat Clear Calc 83.8 Estimated GFR > 60 Random Glucose 127 H Lactic Acid 1.3 Calcium 9.0 Total Bilirubin 0.8 AST 16 ALT 10 Alkaline Phosphatase 68 Total Protein 7.1 Albumin 4.4 Lipase 19 Beta HCG, Quant < 2 Urine Color Yellow Urine Appearance Cloudy Urine pH 5.5 Ur Specific [place] 1.025 Urine Protein 30 (1+) H Urine Glucose (UA) Negative Urine Ketones Trace Urine Blood Moderate (2+) H Urine Nitrite Positive H Ur Leukocyte Esterase Moderate (2+) H Urine RBC 6-10 H Urine WBC >50 H Ur Squamous Epith Cells 6-10 Urine Bacteria 4+ Hyaline Casts 0-2 Assessment and Plan (1) Urinary tract infection: Qualifiers: Hematuria presence: with hematuria Urinary tract infection type: site unspecified Qualified Code(s): N39.0 - Urinary tract infection, site not specified; R31.9 - Hematuria, unspecified Status: Acute Plan 19-year-old female with a past medical history of Nager syndrome (cleft palate, skeletal abnormalities, single kidney), history of recurrent UTIs presented to the hospital with a chief complaint of right flank pain since Sunday. Admitted for following Recurrent UTI: Right-sided moderate hydronephrosis: Ultrasound showed right-sided moderate hydronephrosis. No evidence of renal calculi. Prior cultures grew E coli sensitive to ceftriaxone. Continue ceftriaxone Follow-up cultures Urology consult ID consult Pain control DVT prophylaxis: Lovenox Code status: Full code Quality Stroke Does the patient have a stroke diagnosis?: No VTE Prior VTE?: No VTE Risk Level:: Medical - moderate - high VTE Device Contraindication: Treatment Not Indicated VTE Drug Contraindication: N/A - Med Ordered
[2025-03-29] MEDS: oxyCODONE HCl Immed Release 5 MG TABLET PO (19:45)
[2025-03-29] MEDS: Lactated Ringers 1,000 ML 100 ML IVCONT (19:51)
--- NOTE | 2025-03-29 19:54 | PC.NURSE ---
pt medicated per MAR for 10/10 lower back pain. IVF initiated at 100ml/hour- MD Brown at bedside- plan is for admission and tx of pyelo.
--- NOTE | 2025-03-29 22:03 | PC.NURSE ---
re: Early admin of APAP- per MD duncan give 650mg APAP for temp 102.9
[2025-03-29] MEDS: Acetaminophen 325 MG TABLET 650 MG PO (22:08)
--- NOTE | 2025-03-29 23:15 | PC.NURSE ---
report given to Saleem Storey RN
[2025-03-30] VITALS (8 sets, daily range): BP systolic 102–117; BP diastolic 52–59; PULSE 73–116; RESP 14–18; TEMP 36.7–39.3; O2SAT 96–99; BMI 18.9
[2025-03-30 04:33] LABS: MANUAL DIFF FLAG NO
[2025-03-30 04:37] LABS: Basophils Percent Auto 0.2 % (0-2); Eosinophils Percent Auto 0.1 % (0-4); Hematocrit 32.1 % (37.0-47.0); Hemoglobin 10.9 g/dl (12.0-16.0); Imm Gran Abs Auto 0.07 X10*3/uL (0.00-0.03); Imm Gran Pct Auto 0.5 % (0.0-0.4); Lymphocytes Absolute Auto 1.4 X10*3/uL (1.2-4.9); Lymphocytes Percent Auto 8.9 % (20-40); Mean Corpuscular Hemoglobin 28.5 pg (27.0-33.0); Mean Corpuscular Volume 83.8 fL (80.0-98.0); Mean Platelet Volume 9.9 fL (9.4-12.3); Monocytes Absolute Auto 1.3 X10*3/uL (0.1-1.2); Monocytes Percent Auto 8.3 % (2-11); Neutrophils Absolute Auto 12.5 x10*3/uL (2.0-8.3); Platelet Count 213 X10*3/uL (160-400); Red Blood Count 3.83 X10*6/uL (4.20-5.50); Red Cell Distribution Width 13.6 % (11.0-16.0); White Blood Count 15.2 X10*3/uL (4.8-10.8)
[2025-03-30 04:58] LABS: Alanine Aminotransferase < 6 U/L (0-31); Albumin Level 3.5 g/dL (3.5-5.0); Alkaline Phosphatase 59 U/L (39-117); Anion Gap 14 (12-20); Aspartate Amino Transferase 16 U/L (5-31); Bilirubin Total 1.1 mg/dL (0.0-1.0); Blood Urea Nitrogen 9 mg/dL (9-16); Carbon Dioxide 18 mmol/L (22-29); Chloride 108 mmol/L (96-108); Creatinine Clr Calc Pharmacy 87.2; Estimated Glomerular Filt Rate > 60; Glucose Random 83 mg/dL (60-115); Potassium 3.6 mmol/L (3.3-5.1); Sodium 136 mmol/L (135-145)
[2025-03-30] MEDS: Lactated Ringers 1,000 ML 100 ML IVCONT ×2 (06:26→16:54)
--- NOTE | 2025-03-30 07:47 | P.CNUR_ITS ---
History of Present Illness Consult details Consult date: 03/30/25 Narrative: CC: right pyelonephritis 19-year-old female Past medical history right solitary kidney with recurrent UTIs (Nager Syndrome) presents to hospital with right flank pain since Sunday Has had fevers at home Temperature at hospital 102.4 prior pyelonephritis WBC 15.2, creatinine 0.73 ultrasound imaging with mild right hydronephrosis prior microbiology coli resistant to fluoroquinolones currently on broad-spectrum antibiotics pending culture results recommend minimum 14 days therapy with outpatient follow-up in Urology Review of Systems 2 Constitutional: Constitutional: Reports as per HPI and Reports no additional constitutional complaints Cardiovascular: Cardiovascular: Reports as per HPI and Reports no additional cardiovascular complaints Respiratory: Respiratory: Reports as per HPI and Reports no additional respiratory complaints Gastrointestinal: Gastrointestinal: Reports as per HPI and Reports no additional gastrointestinal complaints Genitourinary: Genitourinary: Reports as per HPI Musculoskeletal: Musculoskeletal: Reports no additional musculoskeletal complaints and Reports as per HPI Neurologic: Reports system reviewed and no additional complaints, except as documented and Reports as per HPI [facility] Past Medical History Medical History Congenital single kidney Social History Social History Alcohol intake: current Alcohol intake frequency: a few times a month Patient Tobacco Use Status: Never used Tobacco Smoked in Last 30 Days: No Substance Use Type: Marijuana Advance Directives: No Advance Directives Information Provided: Yes Do you have a plan to hurt others: No Plan Nutrition Risks: No Nutritional Risk Patient : No Meds Allergies Allergy/AdvReac Type Severity Reaction Status Date / Time ibuprofen AdvReac kidney Verified 03/29/25 16:08 problems Active Medications: Current Medications Acetaminophen (Acetaminophen 325 Mg Tablet) 650 mg PO Q6H PRN PRN Reason: Pain, Mild 1-3,fever,headache Last Admin: 03/29/25 22:08 Dose: 650 mg Calcium Carbonate (Calcium Carbonate 750 Mg Tab.Chew) 750 mg PO Q4H PRN PRN Reason: Heartburn Ceftriaxone Sodium (Ceftriaxone Sodium 1 Gm Vial) 1 gm IVPUSH Q24H JOSELUIS Enoxaparin Sodium (Enoxaparin Sodium 40 Mg/0.4 Ml Syringe) 40 mg SUBCUT Q24H JOSELUIS Last Admin: 03/29/25 19:52 Dose: Not Given Lactated Ringer's (Lr) 1,000 mls @ 100 mls/hr IVCONT .Q10H [facility] Last Admin: 03/30/25 06:26 Dose: 100 mls/hr Magnesium Hydroxide (Milk Of Magnesia 30 Ml Oral.Susp) 30 ml PO DAILY PRN PRN Reason: Constipation Melatonin (Melatonin 3 Mg Tablet) 6 mg PO BEDTIME PRN PRN Reason: Insomnia Ondansetron HCl (Ondansetron Hcl 4 Mg/2 Ml Vial) 4 mg IVPUSH Q8H PRN PRN Reason: Nausea and Vomiting Oxycodone HCl (Oxycodone Hcl Immed Release 5 Mg Tablet) 5 mg PO Q6H PRN PRN Reason: Pain, Severe (Pain Scale 7-10) Last Admin: 03/29/25 19:45 Dose: 5 mg Sodium Chloride (0.9 % Sodium Chloride Flush 3 Ml Syringe) 3 ml IVFLUSH QSHIFT [facility] Last Admin: 03/30/25 03:13 Dose: Not Given Home Medications ?Medication ?Instructions ?Recorded ?Confirmed ?Last Taken ?Type acetaminophen 650 mg 650 - 1,300 mg PO Q12H PRN P ain 03/29/25 03/29/25 03/29/25 History tablet,extended release multivitamin 1 tab PO DAILY 03/29/2503/09 Unknown History Physical Exam 2 Vital Signs: Vital Signs: Last Vital Signs Temp 102.8 F H 03/30/25 06:25 Pulse 105 H 03/30/25 06:25 Resp 16 03/30/25 06:25 BP 115/57 L 03/30/25 06:25 Pulse Ox 97 03/30/25 06:25 O2 Del Method Room Air 03/30/25 06:25 BMI result Body Mass Index 18.9 Const: General: cooperative, healthy appearing, comfortable and no acute distress Orientation/consciousness: patient oriented x3 HEENT: Face and sinus: Yes normal facial exam Mouth: moist mucous membranes Neck: Neck: Yes normal visual inspection, Yes full ROM and Yes trachea midline Chest: Chest palpation & inspection: normal inspection of the chest Resp: Effort & Inspection: normal respiratory effort, able to speak in complete sentences and no respiratory distress GI: Inspection: Yes normal to inspection Back/Spine/Pelvis: Cervical Spine: normal cervical lordosis Thoracic/Lumbar Spine: thoracic and lumbar spine normal to inspection Skin: General skin exam: no rashes or lesions noted Neuro: General: patient oriented x3, tone normal and moves all extremities Extrem: General: Yes normal to inspection and Yes capillary refill normal Results Labs 03/30/25 03:41 03/30/25 03:41 Labs: Abnormal lab results 03/29/25 03/29/25 03/30/25 Range/Units 16:26 16:28 03:41 WBC 13.0 H 15.2 H (4.8-10.8) X10*3/uL RBC 3.83 L (4.20-5.50) X10*6/uL Hgb 10.9 L (12.0-16.0) g/dl Hct 36.3 L 32.1 L (37.0-47.0) % MPV 9.2 L (9.4-12.3) fL Immature Gran % (Auto) 0.5 H (0.0-0.4) % Neut % (Auto) 84.1 H 82.0 H (45-73) % Lymph % (Auto) 9.2 L 8.9 L (20-40) % [place] # (Auto) 1.3 H (0.1-1.2) X10*3/uL Abs Immat Gran (auto) 0.05 H 0.07 H (0.00-0.03) X10*3/uL Absolute Neuts (auto) 10.9 H 12.5 H (2.0-8.3) x10*3/uL Carbon Dioxide 18 L (22-29) mmol/L Random Glucose 127 H (60-115) mg/dL Calcium 8.0 L D (8.4-10.2) mg/dL Total Bilirubin 1.1 H (0.0-1.0) mg/dL Total Protein 6.0 L (6.5-8.0) g/dL Urine Protein 30 (1+) H (Neg-Trace) mg/dL Urine Blood Moderate (2+) H (Negative) Urine Nitrite Positive H (Negative) Ur Leukocyte Esterase Moderate (2+) H (Negative) Urine RBC 6-10 H (0-2) /HPF Urine WBC >50 H (0-5) /HPF Short CBC 03/29/25 03/30/25 Range/Units 16:26 03:41 WBC 13.0 H 15.2 H (4.8-10.8) X10*3/uL Hgb 12.2 10.9 L (12.0-16.0) g/dl Hct 36.3 L 32.1 L (37.0-47.0) % Plt Count 220 213 (160-400) X10*3/uL BMP 03/29/25 03/30/25 16:26 03:41 Sodium 137 136 Potassium 3.5 3.6 Chloride 104 108 Carbon Dioxide 24 18 L BUN 10 9 Creatinine 0.76 0.73 Calcium 9.0 8.0 L D Liver Function 03/29/25 03/30/25 Range/Units 16:26 03:41 Total Bilirubin 0.8 1.1 H (0.0-1.0) mg/dL AST 16 16 (5-31) U/L ALT 10 < 6 (0-31) U/L Alkaline Phosphatase 68 59 (39-117) U/L Albumin 4.4 3.5 (3.5-5.0) g/dL Urine 03/29/25 Range/Units 16:28 Urine Color Yellow Urine Appearance Cloudy Urine pH 5.5 (5.0-9.0) Ur Specific [place] 1.025 (1.005-1.025) Urine Protein 30 (1+) H (Neg-Trace) mg/dL Urine Glucose (UA) Negative (Negative) mg/dL All other labs normal. Assessment and Plan (1) Pyelonephritis: Status: Acute (2) Sepsis: Qualifiers: Sepsis acute organ dysfunction status: without acute organ dysfunction Sepsis type: sepsis due to unspecified organism Qualified Code(s): A41.9 - Sepsis, unspecified organism Status: Acute Plan microbiology directed antibiotic therapy minimum 2 weeks Procedures Date of Service Date of Service: 03/30/25
--- NOTE | 2025-03-30 12:04 | HO.PM.IMPN ---
Subjective Subjective Date of Service: 03/30/25 Review of Systems Follow up UTI Complaints of some back pain No nausea or vomiting Physical Exam Vital Signs: Vital Signs: Last Vital Signs Temp 98.3 F 03/30/25 11:46 Pulse 104 H 03/30/25 11:46 Resp 14 03/30/25 11:46 BP 106/55 L 03/30/25 11:46 Pulse Ox 96 03/30/25 11:46 O2 Del Method Room Air 03/30/25 11:46 BMI result Body Mass Index 18.9 Appearing in no acute distress lung sounds are clear to auscultation heart regular rate rhythm, clear S1, S2 positive bowel sounds, abdomen is soft, nontender neuro patient is alert x3, no focal deficits Objective Data Active Medications Acetaminophen (Acetaminophen 325 Mg Tablet) 650 mg PO Q6H PRN PRN Reason: Pain, Mild 1-3,fever,headache Last Admin: 03/29/25 22:08 Dose: 650 mg Documented By: JULIA Calcium Carbonate (Calcium Carbonate 750 Mg Tab.Chew) 750 mg PO Q4H PRN PRN Reason: Heartburn Ceftriaxone Sodium (Ceftriaxone Sodium 1 Gm Vial) 1 gm IVPUSH Q24H [facility] Enoxaparin Sodium (Enoxaparin Sodium 40 Mg/0.4 Ml Syringe) 40 mg SUBCUT Q24H [facility] Last Admin: 03/29/25 19:52 Dose: Not Given Documented By: JULIA Non-Admin Reason: Patient Condition Contraindication Lactated Ringer's (Lr) 1,000 mls @ 100 mls/hr IVCONT .Q10H [facility] Last Admin: 03/30/25 06:26 Dose: 100 mls/hr Documented By: ARLEEN Magnesium Hydroxide (Milk Of Magnesia 30 Ml Oral.Susp) 30 ml PO DAILY PRN PRN Reason: Constipation Melatonin (Melatonin 3 Mg Tablet) 6 mg PO BEDTIME PRN PRN Reason: Insomnia Ondansetron HCl (Ondansetron Hcl 4 Mg/2 Ml Vial) 4 mg IVPUSH Q8H PRN PRN Reason: Nausea and Vomiting Oxycodone HCl (Oxycodone Hcl Immed Release 5 Mg Tablet) 5 mg PO Q6H PRN PRN Reason: Pain, Severe (Pain Scale 7-10) Last Admin: 03/29/25 19:45 Dose: 5 mg Documented By: JULIA Sodium Chloride (0.9 % Sodium Chloride Flush 3 Ml Syringe) 3 ml IVFLUSH QSHIFT [facility] Last Admin: 03/30/25 07:49 Dose: Not Given Documented By: SANIA Non-Admin Reason: IV Running Labs 03/30/25 03:41 03/30/25 03:41 Labs: Laboratory Results - last 24 hr 03/29/25 03/29/25 03/30/25 16:26 16:28 03:41 MCV 84.4 83.8 MCH 28.4 28.5 MCHC 33.6 34.0 RDW 13.8 13.6 Plt Count 220 213 MPV 9.2 L 9.9 Immature Gran % (Auto) 0.4 0.5 H Neut % (Auto) 84.1 H 82.0 H Lymph % (Auto) 9.2 L 8.9 L [place] % (Auto) 5.9 8.3 Eos % (Auto) 0.2 0.1 Baso % (Auto) 0.2 0.2 Lymph # (Auto) 1.2 1.4 [place] # (Auto) 0.8 1.3 H Eos # (Auto) 0.0 0.0 Baso # (Auto) 0.0 0.0 Abs Immat Gran (auto) 0.05 H 0.07 H Absolute Neuts (auto) 10.9 H 12.5 H Absolute Nucleated RBC 0.000 0.000 Nucleated RBC % (auto) 0.0 0.0 Anion Gap 13 14 Estim Creat Clear Calc 83.8 87.2 Estimated GFR > 60 > 60 Random Glucose 127 H 83 Lactic Acid 1.3 Calcium 9.0 8.0 L D Total Bilirubin 0.8 1.1 H AST 16 16 ALT 10 < 6 Alkaline Phosphatase 68 59 Total Protein 7.1 6.0 L Albumin 4.4 3.5 Lipase 19 Beta HCG, Quant < 2 Urine Color Yellow Urine Appearance Cloudy Urine pH 5.5 Ur Specific [place] 1.025 Urine Protein 30 (1+) H Urine Glucose (UA) Negative Urine Ketones Trace Urine Blood Moderate (2+) H Urine Nitrite Positive H Ur Leukocyte Esterase Moderate (2+) H Urine RBC 6-10 H Urine WBC >50 H Ur Squamous Epith Cells 6-10 Urine Bacteria 4+ Hyaline Casts 0-2 Microbiology Microbiology Results: Microbiology 03/29/25 16:26 Blood Culture - Preliminary Blood - Venous Gram negative samantha 03/29/25 16:28 Urine Culture - Preliminary Urine clean catch - Clean Catch Midstream Gram negative samantha Assessment and Plan (1) Urinary tract infection: Status: Acute Plan 19-year-old female with a past medical history of Nager syndrome (cleft palate, skeletal abnormalities, single kidney), history of recurrent UTIs presented to the hospital with a chief complaint of right flank pain since Sunday. Admitted for following GNR bacteremia Likely secondary to UTI Continue Rocephin Follow up final culture GNR UTI Right-sided moderate hydronephrosis, No evidence of renal calculi. Urology consult>rec 2 weeks of antibiotics and outpatient urology follow up ID consult Pain control Sepsis secondary to UTI Fever, tachycardia, leukocytosis, normal lactic acid Secondary to UTI Continue antibiotics Normocytic anemia No obvious bleeding Follow CBC DVT prophylaxis: Lovenox Code status: Full code Quality Stroke Does the patient have a stroke diagnosis?: No VTE Prior VTE?: No VTE Risk Level:: Medical - moderate - high VTE Device Contraindication: Treatment Not Indicated VTE Drug Contraindication: N/A - Med Ordered
--- NOTE | 2025-03-30 16:16 | MHC.CM.PN ---
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
[2025-03-30] MEDS: cefTRIAXone sodium 1 GM VIAL IVPUSH (16:54)
[2025-03-30] MEDS: 0.9 % Sodium Chloride Flush 3 ML SYRINGE IVFLUSH (16:55)
--- NOTE | 2025-03-30 16:55 | P.CNID_ITS ---
History of Present Illness Data of Consult Service Date: 03/30/25 Requesting physician: Maria Isabel Bnez Primary Care Provider: Lupe Vargas MD [facility] Reason for consult: sepsis She presents with episode urinary incontinence on 03/27 and then fever and chills next day. She hasnt been on antibiotics. She has negative test On arrival to ER WBC 15.2 and temperature 102.9. Review of Systems 2 Review of Systems: Yes all other systems are reviewed and are negative PMFSH Past Medical History Medical History Congenital single kidney Family History Family history: reviewed and not pertinent Social History Social History Household Members: Family Housing: Apartment Do you presently have visiting nurse or other home services: No Alcohol intake: current Alcohol intake frequency: a few times a month Patient Tobacco Use Status: Never used Tobacco Substance Use Type: Marijuana service: No Meds Allergies Allergy/AdvReac Type Severity Reaction Status Date / Time ibuprofen AdvReac kidney Verified 03/29/25 16:08 problems Active Medications: Current Medications Acetaminophen (Acetaminophen 325 Mg Tablet) 650 mg PO Q6H PRN PRN Reason: Pain, Mild 1-3,fever,headache Last Admin: 03/29/25 22:08 Dose: 650 mg Calcium Carbonate (Calcium Carbonate 750 Mg Tab.Chew) 750 mg PO Q4H PRN PRN Reason: Heartburn Ceftriaxone Sodium (Ceftriaxone Sodium 1 Gm Vial) 1 gm IVPUSH Q24H [facility] Enoxaparin Sodium (Enoxaparin Sodium 40 Mg/0.4 Ml Syringe) 40 mg SUBCUT Q24H [facility] Last Admin: 03/29/25 19:52 Dose: Not Given Lactated Ringer's (Lr) 1,000 mls @ 100 mls/hr IVCONT .Q10H [facility] Last Admin: 03/30/25 06:26 Dose: 100 mls/hr Magnesium Hydroxide (Milk Of Magnesia 30 Ml Oral.Susp) 30 ml PO DAILY PRN PRN Reason: Constipation Melatonin (Melatonin 3 Mg Tablet) 6 mg PO BEDTIME PRN PRN Reason: Insomnia Ondansetron HCl (Ondansetron Hcl 4 Mg/2 Ml Vial) 4 mg IVPUSH Q8H PRN PRN Reason: Nausea and Vomiting Oxycodone HCl (Oxycodone Hcl Immed Release 5 Mg Tablet) 5 mg PO Q6H PRN PRN Reason: Pain, Severe (Pain Scale 7-10) Last Admin: 03/29/25 19:45 Dose: 5 mg Sodium Chloride (0.9 % Sodium Chloride Flush 3 Ml Syringe) 3 ml IVFLUSH QSHIFT [facility] Last Admin: 03/30/25 07:49 Dose: Not Given Home Medications ?Medication ?Instructions ?Recorded ?Confirmed ?Last Taken ?Type acetaminophen 650 mg 650 - 1,300 mg PO Q12H PRN P ain 03/29/25 03/29/25 03/29/25 History tablet,extended release multivitamin 1 tab PO DAILY 03/29/2503/09 Unknown History Physical Exam 2 Vital Signs: Vital Signs: Last Vital Signs Temp 99.7 F 03/30/25 15:31 Pulse 91 03/30/25 15:31 Resp 18 03/30/25 15:31 BP 110/58 L 03/30/25 15:31 Pulse Ox 98 03/30/25 15:31 O2 Del Method Room Air 03/30/25 15:31 BMI result Body Mass Index 18.9 Const: General: cooperative HEENT: Head: Yes normal to inspection Face and sinus: Yes normal facial exam Mouth: Normal oral and palatal mucosa present Teeth and gingiva: d entition normal Eyes: General: appearance normal, both eyes and all related structures P upils: Equal, round and reactive pupils present Resp: Effort & Inspection: normal respiratory effort Cardio: Rate: regular rate Rhythm: regular rhythm GI: Palpation (GI): Soft to palpation and nontender : Other: right flank pain General: Yes no CVA tenderness Back/Spine/Pelvis: Back: no CVA tenderness Skin: General skin exam: no rashes or lesions noted Neuro: General: moves all extremities Cranial nerves: Yes Equal, round and reactive pupils present Extrem: General: Yes normal to inspection Psych: Appearance: grossly normal Results Labs 03/30/25 03:41 03/30/25 03:41 Labs: Short CBC 03/30/25 Range/Units 03:41 WBC 15.2 H (4.8-10.8) X10*3/uL Hgb 10.9 L (12.0-16.0) g/dl Hct 32.1 L (37.0-47.0) % Plt Count 213 (160-400) X10*3/uL BMP 03/30/25 03:41 Sodium 136 Potassium 3.6 Chloride 108 Carbon Dioxide 18 L BUN 9 Creatinine 0.73 Calcium 8.0 L D Liver Function 03/30/25 Range/Units 03:41 Total Bilirubin 1.1 H (0.0-1.0) mg/dL AST 16 (5-31) U/L ALT < 6 (0-31) U/L Alkaline Phosphatase 59 (39-117) U/L Albumin 3.5 (3.5-5.0) g/dL Microbiology Microbiology Results: Microbiology 03/29/25 16:26 Blood - Venous Blood Culture - Preliminary Gram negative samantha 03/29/25 16:28 Urine clean catch - Clean Catch Midstream Urine Culture - Preliminary Gram negative samantha Assessment and Plan (1) Pyelonephritis: Status: Acute (2) Sepsis: Qualifiers: Sepsis acute organ dysfunction status: without acute organ dysfunction Sepsis type: sepsis due to unspecified organism Qualified Code(s): A41.9 - Sepsis, unspecified organism Status: Acute Plan She has Najer syndrome. She has pyelonephritis likely Would give IV Ceftriaxone at this time likely convert to po cephalosporin for 14 d if sensitive.
[2025-03-30] MEDS: ondansetron HCL 4 MG/2 ML VIAL IVPUSH (17:34)
[2025-03-30] MEDS: oxyCODONE HCl Immed Release 5 MG TABLET PO ×2 (17:34→23:35)
[2025-03-30] MEDS: Acetaminophen 325 MG TABLET 650 MG PO (18:30)
[2025-03-31] MEDS: Lactated Ringers 1,000 ML 100 ML IVCONT (03:06)
[2025-03-31] MEDS: Acetaminophen 325 MG TABLET 650 MG PO ×2 (03:07→14:06)
[2025-03-31 04:00] VITALS: BP 106/59; PULSE 95; RESP 16; TEMP 38.2; O2SAT 98
[2025-03-31 04:49] VITALS: TEMP 37.1
[2025-03-31 08:00] VITALS: BP 103/61; PULSE 62; RESP 18; TEMP 36.3
--- NOTE | 2025-03-31 10:00 | PM.DS ---
DS: Providers Provider Date of Service: 03/31/25 Date of admission: 03/29/25 18:36 Date of discharge: 03/31/25 Primary care physician: Lupe Vargas MD Consults: 03/29/25 19:29 Consult to Urology Routine Consulting Provider: [facility] Reason for consultation: uti/hydronephrosis; hx single kidney 03/29/25 19:31 Consult to Infectious Diseases Routine Consulting Provider: [facility] Reason for consultation: recty uti; hydronephrosis; hx single kidney DS: Diagnosis Discharge Diagnosis (1) Pyelonephritis: Status: Acute (2) Sepsis: Status: Acute DS: Summary Hospital Course Hospital Course: History and physical as per admitting provider. 19-year-old female with a past medical history of Nager syndrome (cleft palate, skeletal abnormalities, single kidney), history of recurrent UTIs presented to the hospital with a chief complaint of right flank pain since Sunday. Patient mentions since Sunday she has been having constant right flank pain Nausea. Denies any abdominal pain per se. Denies any hematuria. Denies any chest pain or palpitations. subjective fevers. Review of all other systems is negative except mentioned above ER course: Per ER team, patient on presentation noted to have flank tenderness; urinalysis abnormal consistent with UTI. Ultrasound showed moderate right-sided hydronephrosis. Patient qualified for sepsis criteria. Patient was febrile on presentation. Given IV fluids. Given ceftriaxone. 19-year-old woman treated for acute on chronic UTI, found to have E coli UTI and GNR bacteremia likely E coli. Treated with IV Rocephin while inpatient. We will complete a total of 14 days of Ceftin while outpatient. Seen evaluated by Infectious Disease provider. Patient should follow up with Urology outpatient. She was also noted to have sepsis secondary to UTI with fever, tachycardia, leukocytosis with normal lactic acid. Resolved. Normocytic anemia. No obvious bleeding. Time Attestation Discharge Coordination Time (in mins): 42 Quality: Safe Use of Opioids Does Pt have an Active Cancer Diagnosis on the Problem List?: No Quality: Stroke Does the patient have a stroke diagnosis?: No Physical Exam Vital Signs: Vital Signs: Last Vital Signs Temp 97.3 F 03/31/25 08:00 Pulse 62 03/31/25 08:00 Resp 18 03/31/25 08:00 BP 103/61 03/31/25 08:00 Pulse Ox 98 03/31/25 04:00 O2 Del Method Room Air 03/31/25 08:00 O2 Flow Rate 96 03/31/25 08:00 BMI result Body Mass Index 18.9 Appearing in no acute distress head is normocephalic atraumatic eyes pupils are PERRLA sclera is anicteric mouth throat mucous membranes are intact and moist neck is supple no lymphadenopathy, no JVD noted lung sounds are clear to auscultation heart regular rate rhythm, clear S1, S2 positive bowel sounds, abdomen is soft, nontender neuro patient is alert x3, no focal deficits DS: Data Data Completed and Pending Labs on day of discharge: Preliminary micro results at discharge 03/29/25 16:38 Blood Culture - Preliminary Blood - Venous No growth after 24 hours. 03/29/25 16:26 Blood Culture - Preliminary Blood - Venous Gram negative samantha Discharge Plan Discharge Anticipated Discharge Date/Time: 03/31/25 08:19 Patient Disposition: Home, Self-Care Discharge Diagnosis: E coli UTI Gram-negative bacteremia Referrals: Lupe Vargas MD [Primary Care Provider, Internal Medicine] - 1 Week Discharge Medications: New oxycodone 5 mg Tablet 5 mg PO Q6H PRN (Reason: Pain, Severe (Pain Scale 7-10)) Qty: 12 0RF Rx Instructions: Partial Fill upon patient request. cefuroxime axetil 500 mg tablet 500 mg PO BID 14 Days Qty: 28 0RF Continued multivitamin Tablet 1 tab PO DAILY acetaminophen 650 mg Tablet Extended Release 650 - 1,300 mg PO Q12H PRN (Reason: Pain) Discharge Orders: Discharge Order (Routine); Ordered 03/31/25 Ordered By: Maria Isabel Benz Diet: Advance to usual diet Activity on Discharge: As tolerated Stand Alone Forms: Patient Portal Discharge page Print Language: Emirati Care Plan Goals: Continue total 14 days of antibiotic treatment and follow up with Urology outpatient for frequent UTIs Health Concerns: E coli UTI Gram-negative bacteremia Plan of Treatment: Follow-up with primary care provider as needed Take all medications as prescribed Assessment: See discharge summary
--- NOTE | 2025-03-31 10:19 | MHC.CM.PN ---
Patient has been medically cleared for dc to home today, self care.
[2025-03-31 12:00] VITALS: BP 104/68; PULSE 63; RESP 18; TEMP 36.9; O2SAT 98
== END 2025-03-31 14:30 | disposition home or self-care (01) | DRG 872 ==
LOC: HO.ED 18:36 → HO.EDOVER 18:50 → HO.IMC 03-30 07:41
PROVIDERS: Hospitalist; Physician Assistant; Admitting Provider Internal Medicine; Emergency Provider Emergency Medicine Emergency Medical Services; PCP Internal Medicine; Visit Provider Nurse Practitioner Acute Care
DX: A41.9 Sepsis, unspecified organism (principal); N13.6 Pyonephrosis; Q60.0 Renal agenesis, unilateral; B96.20 Unspecified Escherichia coli [E. coli] as the cause of diseases classified elsewhere; D64.9 Anemia, unspecified; Q75.9 Congenital malformation of skull and face bones, unspecified; Z87.440 Personal history of urinary (tract) infections; Z79.899 Other long term (current) drug therapy
CPT/HCPCS: 36415; 76775; 80053; 81001; 83605; 83690; 84702; 85025; 87040; 87077; 87086; 87088; 87186; 87205; 99285; J0696; J2405; J7120

== ENCOUNTER → 2025-03-29 17:26 | Outpatient (BNV) | payer SELFPAY | PROVIDERS: Admitting Provider Internal Medicine; Emergency Provider Emergency Medicine Emergency Medical Services; PCP Internal Medicine; Visit Provider Radiology Diagnostic Radiology | DX: N13.2 Hydronephrosis with renal and ureteral calculous obstruction (principal) | CPT/HCPCS: 76775 ==

== ENCOUNTER → 2025-03-29 18:36 | Outpatient (BNV) | payer SELFPAY | PROVIDERS: Admitting Provider Internal Medicine; Emergency Provider Emergency Medicine Emergency Medical Services; PCP Internal Medicine; Visit Provider Hospitalist | DX: N39.0 Urinary tract infection, site not specified (principal); R31.9 Hematuria, unspecified | CPT/HCPCS: 99223; 99232; 99239 ==

== ENCOUNTER → 2025-03-29 18:36 | Outpatient (BNV) | payer SELFPAY | PROVIDERS: Admitting Provider Internal Medicine; Emergency Provider Emergency Medicine Emergency Medical Services; PCP Internal Medicine; Visit Provider Internal Medicine | DX: A41.9 Sepsis, unspecified organism (principal); N12 Tubulo-interstitial nephritis, not specified as acute or chronic | CPT/HCPCS: 99232 ==

== ENCOUNTER → 2025-03-29 18:36 | Outpatient (BNV) | payer SELFPAY | PROVIDERS: Admitting Provider Internal Medicine; Emergency Provider Emergency Medicine Emergency Medical Services; PCP Internal Medicine; Visit Provider Urology | DX: N12 Tubulo-interstitial nephritis, not specified as acute or chronic (principal); A41.9 Sepsis, unspecified organism | CPT/HCPCS: 99222 ==